=== PATIENT | male | born 1950 | race Caucasian/White ===

== ENCOUNTER 2017-04-14 11:42 | Inpatient (IN) | payer OTHER ==
[2017-04-14 15:21] LABS: ADD MAN DIFF? NO
[2017-04-14 15:23] LABS: BASOPHIL # 0.1 10^3/ul (0.0-0.1); BASOPHILS % 0.6 % (0.0-2.0); EOSINOPHILS # 0.1 10^3/ul (0.0-0.5); EOSINOPHILS % 0.7 % (0.0-7.0); HEMATOCRIT 25.7 % (42.0-52.0); HEMOGLOBIN 8.5 g/dl (14.0-18.0); MEAN CORPUSCULAR HEMOGLOBIN 28.8 pg (29.0-33.0); MEAN CORPUSCULAR HGB CONC 33.1 g/dl (32.0-37.0); MEAN CORPUSCULAR VOLUME 87.1 fl (82.0-101.0); MEAN PLATELET VOLUME 12.1 fl (7.4-10.4); MONOCYTE # 1.1 10^3/ul (0.3-0.9); MONOCYTES % 7.8 % (0.0-11.0); NEUTROPHIL # 8.1 10^3/ul (1.6-7.5); NEUTROPHILS % 60.6 % (39.0-77.0); PLATELET COUNT 236 10^3/UL (140-415); RED BLOOD COUNT 2.95 10^6/ul (4.70-6.10); RED CELL DISTRIBUTION WIDTH 14.9 % (11.5-14.5)
[2017-04-14 15:23] LABS: WHITE BLOOD COUNT 13.4 10^3/ul (4.8-10.8)
[2017-04-14 15:49] LABS: ALANINE AMINOTRANSFERASE 30 IU/L (13-69); ALBUMIN 3.8 g/dl (3.3-4.9); ALBUMIN/GLOBULIN RATIO 1.18; ALKALINE PHOSPHATASE 96 IU/L (42-121); ANION GAP 22 (8-16); ASPARTATE AMINO TRANSFERASE 22 IU/L (15-46); BILIRUBIN,INDIRECT 0.1 mg/dl (0-1.1); BILIRUBIN,TOTAL 0.1 mg/dl (0.2-1.3); BLOOD UREA NITROGEN 65 mg/dl (7-20); CALCIUM 8.3 mg/dl (8.4-10.2); CARBON DIOXIDE 19 mmol/L (21-31); CHLORIDE 114 mmol/L (97-110); CREATININE 7.76 mg/dl (0.61-1.24); GLUCOSE 61 mg/dl (70-220); POTASSIUM 4.4 mmol/L (3.5-5.1); SODIUM 151 mmol/L (135-144)
[2017-04-14 16:00] LABS: B-TYPE NATRIURETIC PEPTIDE 13800 PG/ML (0-125); TROPONIN-I 0.034 ng/ml (0.00-0.12)
[2017-04-14 17:42] LABS: ADD UMIC YES; UR ASCORBIC ACID NEGATIVE (NEGATIVE); UR BACTERIA FEW /HPF (NONE SEEN); UR BILIRUBIN (Dip) NEGATIVE (NEGATIVE); UR BLOOD (Dip) 2+ mg/dL (NEGATIVE); UR CLARITY CLOUDY (CLEAR); UR COLOR YELLOW (YELLOW); UR GLUCOSE (Dip) 1+ mg/dL (NEGATIVE); UR KETONES (Dip) NEGATIVE (NEGATIVE); UR LEUKOCYTE ESTERASE (Dip) NEGATIVE Leu/ul (NEGATIVE); UR NITRITE (Dip) NEGATIVE (NEGATIVE); UR RBC 4 /HPF (0-5); UR SPECIFIC GRAVITY (Dip) 1.014 (1.003-1.030); UR TOTAL PROTEIN (Dip) 3+ mg/dl (NEGATIVE); UR UROBILINOGEN (Dip) NEGATIVE (NEGATIVE); UR WBC 5 /HPF (0-5)
[2017-04-14] MEDS ORDERED: ACETAMINOPHEN 325 MG TAB PO (19:00)
[2017-04-14] MEDS ORDERED: ONDANSETRON 4 MG INJ IV (19:00)
[2017-04-15] MEDS: hydrALAzine 20 MG INJ IV ×2 (01:26→18:07)
[2017-04-15] MEDS ORDERED: ALBUTEROL/IPRATROPIUM (NEB) 3 ML AMP HHN (04:30)
[2017-04-15] MEDS ORDERED: ACETAMINOPHEN 325 MG TAB PO (04:30)
[2017-04-15] MEDS ORDERED: morphine 2 MG INJ IV (04:30)
[2017-04-15] MEDS ORDERED: hydrALAzine 20 MG INJ IV (04:30)
[2017-04-15] MEDS ORDERED: ONDANSETRON 4 MG INJ IV (04:30)
[2017-04-15] MEDS ORDERED: NACL 0.9% 3 ML SYG IV (04:30)
[2017-04-15] MEDS: SOD CHLORIDE 0.9% 1,000 ML IV ×3 (06:00→18:07)
[2017-04-15] MEDS: ALBUMIN HUMAN 25% 100 ML IV ×3 (08:55→20:18)
[2017-04-15] MEDS: AMLODIPINE 10 MG TAB PO (08:56)
[2017-04-15] MEDS: FERROUS SULFATE (EC) 325 MG TAB PO ×2 (08:57→20:16)
[2017-04-15 09:32] LABS: ADD MAN DIFF? NO
[2017-04-15 09:46] LABS: BASOPHIL # 0.1 10^3/ul (0.0-0.1); BASOPHILS % 0.7 % (0.0-2.0); EOSINOPHILS # 0.2 10^3/ul (0.0-0.5); HEMATOCRIT 24.7 % (42.0-52.0); HEMOGLOBIN 8.2 g/dl (14.0-18.0); LYMPHOCYTES # 3.2 10^3/ul (0.8-2.9); LYMPHOCYTES % 29.7 % (15.0-51.0); MEAN CORPUSCULAR HEMOGLOBIN 28.8 pg (29.0-33.0); MEAN CORPUSCULAR HGB CONC 33.2 g/dl (32.0-37.0); MEAN CORPUSCULAR VOLUME 86.7 fl (82.0-101.0); MEAN PLATELET VOLUME 12.4 fl (7.4-10.4); MONOCYTE # 0.9 10^3/ul (0.3-0.9); MONOCYTES % 8.1 % (0.0-11.0); NEUTROPHIL # 6.5 10^3/ul (1.6-7.5); NEUTROPHILS % 59.2 % (39.0-77.0); PLATELET COUNT 215 10^3/UL (140-415); RED BLOOD COUNT 2.85 10^6/ul (4.70-6.10); RED CELL DISTRIBUTION WIDTH 14.9 % (11.5-14.5)
[2017-04-15 09:46] LABS: WHITE BLOOD COUNT 10.9 10^3/ul (4.8-10.8)
[2017-04-15 10:01] LABS: IRON 12 ug/dl (35-150)
[2017-04-15 10:05] LABS: ALANINE AMINOTRANSFERASE 34 IU/L (13-69); ALBUMIN 3.1 g/dl (3.3-4.9); ALBUMIN/GLOBULIN RATIO 1.06; ALKALINE PHOSPHATASE 81 IU/L (42-121); ANION GAP 19 (8-16); ASPARTATE AMINO TRANSFERASE 19 IU/L (15-46); BLOOD UREA NITROGEN 67 mg/dl (7-20); CALCIUM 7.9 mg/dl (8.4-10.2); CARBON DIOXIDE 17 mmol/L (21-31); CHLORIDE 115 mmol/L (97-110); CHOL/HDL RATIO 3.3 RATIO; CHOLESTEROL 137 mg/dl (100-200); CREATININE 7.84 mg/dl (0.61-1.24); GLUCOSE 91 mg/dl (70-220); HDL CHOLESTEROL 41 mg/dl (30-78); LDL CHOLESTEROL,CALCULATED 75 mg/dl; MAGNESIUM 2.2 mg/dl (1.7-2.5); POTASSIUM 3.8 mmol/L (3.5-5.1); SODIUM 147 mmol/L (135-144); TRIGLYCERIDES 105 mg/dl (0-149)
[2017-04-15 10:12] LABS: % IRON SATURATION 4 % SAT (22-52); TOTAL IRON BINDING CAPACITY 289 ug/dl (241-421)
[2017-04-15] MEDS: HEPARIN 5,000 UNIT/0.5 ML VIAL SC ×2 (10:36→20:29)
[2017-04-15 16:15] LABS: SODIUM,URINE RANDOM 55 mmol/L (30-90)
[2017-04-15 16:15] LABS: POTASSIUM,URINE RANDOM 21.9 mmol/L (25-125)
[2017-04-15 16:17] LABS: CREATININE,URINE RANDOM 123.54 mg/dl (20-370)
[2017-04-15 16:17] LABS: SODIUM,URINE RANDOM 55 mmol/L (30-90)
[2017-04-15 16:30] LABS: PROTEIN URINE > 600.0 mg/dl (0.0-11.9)
[2017-04-15] MEDS ORDERED: DEXTROSE 50% 50 ML SYRINGE IV ×2 (18:00)
[2017-04-15] MEDS ORDERED: GLUCOSE GEL 15 GRAM TUBE BUCCAL (18:00)
[2017-04-15] MEDS ORDERED: GLUCAGON 1 MG INJ IM (18:00)
[2017-04-15] MEDS ORDERED: GLUCOSE GEL 15 GRAM TUBE PO ×2 (18:00)
[2017-04-15] MEDS: ATORVASTATIN 20 MG TAB PO (20:15)
[2017-04-15] MEDS: INSULIN GLARGINE [LANtus] 3 ML PEN SC (20:28)
[2017-04-15] MEDS: INSULIN ASPART [NOVOLOG] 3 ML PEN SC (20:29)
[2017-04-15] MEDS: ACCU-CHEK XX (20:29)
[2017-04-16 06:08] LABS: ADD MAN DIFF? NO
[2017-04-16 06:38] LABS: WHITE BLOOD COUNT 9.4 10^3/ul (4.8-10.8)
[2017-04-16 06:38] LABS: BASOPHIL # 0.1 10^3/ul (0.0-0.1); BASOPHILS % 0.6 % (0.0-2.0); EOSINOPHILS # 0.2 10^3/ul (0.0-0.5); EOSINOPHILS % 2.4 % (0.0-7.0); HEMATOCRIT 23.1 % (42.0-52.0); HEMOGLOBIN 7.5 g/dl (14.0-18.0); LYMPHOCYTES # 3.1 10^3/ul (0.8-2.9); LYMPHOCYTES % 33.2 % (15.0-51.0); MEAN CORPUSCULAR HEMOGLOBIN 28.7 pg (29.0-33.0); MEAN CORPUSCULAR HGB CONC 32.5 g/dl (32.0-37.0); MEAN CORPUSCULAR VOLUME 88.5 fl (82.0-101.0); MEAN PLATELET VOLUME 12.8 fl (7.4-10.4); MONOCYTE # 0.8 10^3/ul (0.3-0.9); MONOCYTES % 8.3 % (0.0-11.0); NEUTROPHIL # 5.2 10^3/ul (1.6-7.5); NEUTROPHILS % 55.2 % (39.0-77.0); PLATELET COUNT 193 10^3/UL (140-415); RED BLOOD COUNT 2.61 10^6/ul (4.70-6.10)
[2017-04-16 07:30] LABS: ALANINE AMINOTRANSFERASE 28 IU/L (13-69); ALBUMIN 3.7 g/dl (3.3-4.9); ALBUMIN/GLOBULIN RATIO 1.42; ALKALINE PHOSPHATASE 65 IU/L (42-121); ANION GAP 21 (8-16); ASPARTATE AMINO TRANSFERASE 20 IU/L (15-46); BLOOD UREA NITROGEN 66 mg/dl (7-20); C-REACTIVE PROTEIN 1.1 mg/dl (0.0-0.9); CALCIUM 8.1 mg/dl (8.4-10.2); CARBON DIOXIDE 18 mmol/L (21-31); CHLORIDE 114 mmol/L (97-110); CREATININE 7.52 mg/dl (0.61-1.24); SODIUM 149 mmol/L (135-144); TOTAL PROTEIN 6.3 g/dl (6.1-8.1)
[2017-04-16 07:42] LABS: GLUCOSE 42 mg/dl (70-220)
[2017-04-16] MEDS: ACCU-CHEK XX ×4 (07:48→21:00)
[2017-04-16] MEDS: FERROUS SULFATE (EC) 325 MG TAB PO ×2 (08:11→20:35)
[2017-04-16] MEDS: AMLODIPINE 10 MG TAB PO (08:11)
[2017-04-16] MEDS: HEPARIN 5,000 UNIT/0.5 ML VIAL SC ×2 (08:12→20:36)
[2017-04-16 08:16] LABS: PHOSPHORUS 5.7 mg/dl (2.5-4.9)
[2017-04-16 08:16] LABS: MAGNESIUM 2.1 mg/dl (1.7-2.5)
[2017-04-16] MEDS: INSULIN ASPART [NOVOLOG] 3 ML PEN SC ×4 (08:16→20:40)
[2017-04-16 11:00] LABS: HEMOGLOBIN A1C 5.6 % (0-5.9)
[2017-04-16 17:31] LABS: COMPLEMENT C3 88 mg/dl (88-165); COMPLEMENT C4 32 mg/dl (14-44)
[2017-04-16] MEDS: ATORVASTATIN 20 MG TAB PO (20:35)
[2017-04-16] MEDS: INSULIN GLARGINE [LANtus] 3 ML PEN SC (20:37)
[2017-04-17 03:01] LABS: OCCULT BLOOD STOOL NEGATIVE (NEGATIVE)
[2017-04-17 05:51] LABS: ADD MAN DIFF? NO
[2017-04-17 05:55] LABS: BASOPHIL # 0.1 10^3/ul (0.0-0.1); BASOPHILS % 0.5 % (0.0-2.0); EOSINOPHILS # 0.3 10^3/ul (0.0-0.5); EOSINOPHILS % 2.8 % (0.0-7.0); HEMATOCRIT 23.7 % (42.0-52.0); HEMOGLOBIN 7.7 g/dl (14.0-18.0); LYMPHOCYTES % 28.3 % (15.0-51.0); MEAN CORPUSCULAR HEMOGLOBIN 28.8 pg (29.0-33.0); MEAN CORPUSCULAR HGB CONC 32.5 g/dl (32.0-37.0); MEAN CORPUSCULAR VOLUME 88.8 fl (82.0-101.0); MONOCYTE # 0.9 10^3/ul (0.3-0.9); MONOCYTES % 8.2 % (0.0-11.0); NEUTROPHIL # 6.3 10^3/ul (1.6-7.5); PLATELET COUNT 200 10^3/UL (140-415); RED BLOOD COUNT 2.67 10^6/ul (4.70-6.10); RED CELL DISTRIBUTION WIDTH 14.8 % (11.5-14.5)
[2017-04-17 05:55] LABS: WHITE BLOOD COUNT 10.6 10^3/ul (4.8-10.8)
[2017-04-17 06:29] LABS: IRON 52 ug/dl (35-150)
[2017-04-17 06:37] LABS: PHOSPHORUS 5.9 mg/dl (2.5-4.9)
[2017-04-17 06:39] LABS: % IRON SATURATION 19 % SAT (22-52); TOTAL IRON BINDING CAPACITY 270 ug/dl (241-421)
[2017-04-17 06:58] LABS: ALANINE AMINOTRANSFERASE 36 IU/L (13-69); ALBUMIN 3.7 g/dl (3.3-4.9); ALBUMIN/GLOBULIN RATIO 1.37; ALKALINE PHOSPHATASE 68 IU/L (42-121); ANION GAP 19 (8-16); ASPARTATE AMINO TRANSFERASE 24 IU/L (15-46); BILIRUBIN,INDIRECT 0.1 mg/dl (0-1.1); BILIRUBIN,TOTAL 0.1 mg/dl (0.2-1.3); BLOOD UREA NITROGEN 73 mg/dl (7-20); CALCIUM 8.1 mg/dl (8.4-10.2); CARBON DIOXIDE 17 mmol/L (21-31); CHLORIDE 111 mmol/L (97-110); CREATININE 7.65 mg/dl (0.61-1.24); GLUCOSE 60 mg/dl (70-220); POTASSIUM 4.7 mmol/L (3.5-5.1); SODIUM 142 mmol/L (135-144); TOTAL PROTEIN 6.4 g/dl (6.1-8.1)
[2017-04-17 07:08] LABS: FERRITIN 48.6 ng/ml (11.1-264.0)
[2017-04-17] MEDS: INSULIN ASPART [NOVOLOG] 3 ML PEN SC ×5 (08:00→20:46)
[2017-04-17] MEDS: ACCU-CHEK XX ×4 (08:07→20:48)
[2017-04-17 08:09] LABS: ERYTHROCYTE SEDIMENTATION RATE 40 mm/Hr (0-20)
[2017-04-17] MEDS: FERROUS SULFATE (EC) 325 MG TAB PO ×2 (08:57→20:42)
[2017-04-17] MEDS: AMLODIPINE 10 MG TAB PO (08:58)
[2017-04-17] MEDS: FUROSEMIDE 40 MG INJ IV ×2 (08:58→17:21)
[2017-04-17] MEDS: HEPARIN 5,000 UNIT/0.5 ML VIAL SC ×2 (09:06→20:48)
[2017-04-17 11:11] LABS: PROTEIN, TOTAL 5.7 g/dL (6.1-8.1)
[2017-04-17] MEDS: SEVELAMER 400 MG TAB PO ×2 (11:31→17:17)
[2017-04-17] MEDS: SOD FERRIC GLUC COMPLX 125 MG in SOD CHLORIDE 0.9% 100 ML IVPB (11:31)
[2017-04-17] MEDS: EPOETIN 10000 UNITS/1 ML INJ (ESRD) SC (17:17)
[2017-04-17] MEDS: ATORVASTATIN 20 MG TAB PO (20:42)
[2017-04-17] MEDS: INSULIN GLARGINE [LANtus] 3 ML PEN SC (20:45)
[2017-04-18] MEDS: FUROSEMIDE 40 MG INJ IV ×2 (05:35→17:30)
[2017-04-18 05:54] LABS: ADD MAN DIFF? NO
[2017-04-18 05:59] LABS: BASOPHILS % 0.4 % (0.0-2.0); EOSINOPHILS # 0.2 10^3/ul (0.0-0.5); EOSINOPHILS % 1.9 % (0.0-7.0); HEMATOCRIT 23.3 % (42.0-52.0); HEMOGLOBIN 7.5 g/dl (14.0-18.0); LYMPHOCYTES # 2.8 10^3/ul (0.8-2.9); LYMPHOCYTES % 30.4 % (15.0-51.0); MEAN CORPUSCULAR HEMOGLOBIN 28.5 pg (29.0-33.0); MEAN CORPUSCULAR HGB CONC 32.2 g/dl (32.0-37.0); MEAN CORPUSCULAR VOLUME 88.6 fl (82.0-101.0); MEAN PLATELET VOLUME 12.1 fl (7.4-10.4); MONOCYTE # 0.8 10^3/ul (0.3-0.9); MONOCYTES % 8.5 % (0.0-11.0); NEUTROPHIL # 5.4 10^3/ul (1.6-7.5); NEUTROPHILS % 58.5 % (39.0-77.0); PLATELET COUNT 192 10^3/UL (140-415); RED BLOOD COUNT 2.63 10^6/ul (4.70-6.10); RED CELL DISTRIBUTION WIDTH 14.6 % (11.5-14.5)
[2017-04-18 05:59] LABS: WHITE BLOOD COUNT 9.3 10^3/ul (4.8-10.8)
[2017-04-18 06:41] LABS: ANION GAP 17 (8-16); BLOOD UREA NITROGEN 80 mg/dl (7-20); CALCIUM 8.4 mg/dl (8.4-10.2); CARBON DIOXIDE 19 mmol/L (21-31); CHLORIDE 109 mmol/L (97-110); GLUCOSE 58 mg/dl (70-220); POTASSIUM 4.5 mmol/L (3.5-5.1); SODIUM 140 mmol/L (135-144)
[2017-04-18] MEDS: ACCU-CHEK XX ×4 (07:30→21:00)
[2017-04-18] MEDS: INSULIN ASPART [NOVOLOG] 3 ML PEN SC ×7 (07:35→21:00)
[2017-04-18] MEDS: FERROUS SULFATE (EC) 325 MG TAB PO ×2 (09:45→21:33)
[2017-04-18] MEDS: SEVELAMER 400 MG TAB PO ×3 (09:45→17:24)
[2017-04-18] MEDS: AMLODIPINE 10 MG TAB PO (09:46)
[2017-04-18] MEDS: HEPARIN 5,000 UNIT/0.5 ML VIAL SC ×2 (09:47→21:34)
[2017-04-18] MEDS: SOD FERRIC GLUC COMPLX 125 MG in SOD CHLORIDE 0.9% 100 ML IVPB (09:48)
[2017-04-18 11:24] LABS: PROTIME 15.4 Sec (11.9-14.9); PT RATIO 1.2
[2017-04-18 12:21] LABS: PARTIAL THROMBOPLASTIN TIME 39.4 Sec (25.0-35.0)
[2017-04-18 16:26] LABS: CREATININE, RANDOM URINE 143 mg/dL (20-370); PROTEIN/CREATININE RATIO 5552 mg/g creat (22-128); PTH CALCIUM 8.1 mg/dL (8.6-10.3); PTH CALCIUM 8.2 mg/dL (8.6-10.3)
[2017-04-18 17:12] LABS: ALBUMIN 3.4 g/dL (3.8-4.8); ALPHA-1-GLOBULINS 0.3 g/dL (0.2-0.3); ALPHA-2-GLOBULINS 0.7 g/dL (0.5-0.9); BETA 2 GLOBULINS 0.3 g/dL (0.2-0.5); BETA GLOBULINS 0.4 g/dL (0.4-0.6); GAMMA GLOBULINS 0.7 g/dL (0.8-1.7)
[2017-04-18] MEDS: INSULIN GLARGINE [LANtus] 3 ML PEN SC (20:00)
[2017-04-18] MEDS: ATORVASTATIN 20 MG TAB PO (21:33)
[2017-04-18] MEDS: DEXTROSE 5%-0.45% NACL 1,000 ML IV (21:57)
[2017-04-19] MEDS: INSULIN ASPART [NOVOLOG] 3 ML PEN SC ×9 (01:02→22:47)
[2017-04-19 05:57] LABS: ADD MAN DIFF? NO
[2017-04-19] MEDS: FUROSEMIDE 40 MG INJ IV ×2 (05:58→20:31)
[2017-04-19 06:11] LABS: WHITE BLOOD COUNT 11.4 10^3/ul (4.8-10.8)
[2017-04-19 06:11] LABS: BASOPHIL # 0.1 10^3/ul (0.0-0.1); BASOPHILS % 0.7 % (0.0-2.0); EOSINOPHILS # 0.3 10^3/ul (0.0-0.5); EOSINOPHILS % 2.2 % (0.0-7.0); HEMATOCRIT 23.1 % (42.0-52.0); HEMOGLOBIN 7.6 g/dl (14.0-18.0); LYMPHOCYTES # 3.2 10^3/ul (0.8-2.9); LYMPHOCYTES % 28.1 % (15.0-51.0); MEAN CORPUSCULAR HEMOGLOBIN 28.9 pg (29.0-33.0); MEAN CORPUSCULAR HGB CONC 32.9 g/dl (32.0-37.0); MEAN CORPUSCULAR VOLUME 87.8 fl (82.0-101.0); MEAN PLATELET VOLUME 12.9 fl (7.4-10.4); MONOCYTE # 1.3 10^3/ul (0.3-0.9); MONOCYTES % 11.5 % (0.0-11.0); NEUTROPHIL # 6.5 10^3/ul (1.6-7.5); NEUTROPHILS % 56.8 % (39.0-77.0); PLATELET COUNT 181 10^3/UL (140-415); RED BLOOD COUNT 2.63 10^6/ul (4.70-6.10); RED CELL DISTRIBUTION WIDTH 14.6 % (11.5-14.5)
[2017-04-19 06:43] LABS: ANION GAP 16 (8-16); BLOOD UREA NITROGEN 80 mg/dl (7-20); CALCIUM 8.2 mg/dl (8.4-10.2); CARBON DIOXIDE 16 mmol/L (21-31); CHLORIDE 109 mmol/L (97-110); CREATININE 7.75 mg/dl (0.61-1.24); GLUCOSE 118 mg/dl (70-220); MAGNESIUM 1.9 mg/dl (1.7-2.5); POTASSIUM 4.2 mmol/L (3.5-5.1); SODIUM 137 mmol/L (135-144)
[2017-04-19] MEDS ORDERED: CEFAZOLIN 1 GM INJ (07:00)
[2017-04-19] MEDS: ACCU-CHEK XX ×4 (07:30→21:00)
[2017-04-19 08:20] LABS: PTH INTACT 171 pg/mL (14-64); PTH INTACT 173 pg/mL (14-64)
[2017-04-19] MEDS: FERROUS SULFATE (EC) 325 MG TAB PO ×2 (09:00→21:53)
[2017-04-19] MEDS: HEPARIN 5,000 UNIT/0.5 ML VIAL SC ×2 (09:00→21:56)
[2017-04-19] MEDS: AMLODIPINE 10 MG TAB PO (09:00)
[2017-04-19] MEDS ORDERED: LIDOCAINE 1% (MDV) 20 ML INJ (09:23)
[2017-04-19] MEDS ORDERED: FENTAnyl 50 MCG/ML VIAL ×2 (09:23→10:51)
[2017-04-19] MEDS ORDERED: HEPARIN 1000 UNITS/ML 10 ML INJ (09:23)
[2017-04-19] MEDS ORDERED: MIDAZOLAM 1 MG/ML 2 ML INJ ×2 (09:23→10:51)
[2017-04-19] MEDS ORDERED: SOD CHLORIDE 0.9% 500 ML (09:24)
[2017-04-19] MEDS ORDERED: PROPOFOL 20 ML (10:50)
[2017-04-19] MEDS ORDERED: SEVELAMER 400 MG TAB PO (11:30)
[2017-04-19] MEDS: SOD FERRIC GLUC COMPLX 125 MG in SOD CHLORIDE 0.9% 100 ML IVPB (14:28)
[2017-04-19] MEDS: SEVELAMER 800 MG TAB PO ×2 (14:31→20:24)
[2017-04-19] MEDS: ATORVASTATIN 20 MG TAB PO (21:53)
[2017-04-19] MEDS: EPOETIN 10000 UNITS/1 ML INJ (ESRD) SC (22:39)
[2017-04-19] MEDS: INSULIN GLARGINE [LANtus] 3 ML PEN SC (22:47)
[2017-04-20] MEDS: FUROSEMIDE 40 MG INJ IV ×2 (05:34→17:58)
[2017-04-20 06:42] LABS: ADD MAN DIFF? NO
[2017-04-20 06:56] LABS: BASOPHIL # 0.1 10^3/ul (0.0-0.1); BASOPHILS % 0.5 % (0.0-2.0); EOSINOPHILS # 0.2 10^3/ul (0.0-0.5); EOSINOPHILS % 1.4 % (0.0-7.0); HEMATOCRIT 23.3 % (42.0-52.0); HEMOGLOBIN 7.6 g/dl (14.0-18.0); LYMPHOCYTES % 28.4 % (15.0-51.0); MEAN CORPUSCULAR HEMOGLOBIN 28.8 pg (29.0-33.0); MEAN CORPUSCULAR HGB CONC 32.6 g/dl (32.0-37.0); MEAN CORPUSCULAR VOLUME 88.3 fl (82.0-101.0); MEAN PLATELET VOLUME 12.6 fl (7.4-10.4); MONOCYTE # 1.2 10^3/ul (0.3-0.9); MONOCYTES % 11.5 % (0.0-11.0); NEUTROPHIL # 6.2 10^3/ul (1.6-7.5); NEUTROPHILS % 57.8 % (39.0-77.0); PLATELET COUNT 184 10^3/UL (140-415); RED BLOOD COUNT 2.64 10^6/ul (4.70-6.10); RED CELL DISTRIBUTION WIDTH 14.6 % (11.5-14.5)
[2017-04-20 06:56] LABS: WHITE BLOOD COUNT 10.7 10^3/ul (4.8-10.8)
[2017-04-20 07:14] LABS: ANION GAP 16 (8-16); BLOOD UREA NITROGEN 62 mg/dl (7-20); CALCIUM 8.2 mg/dl (8.4-10.2); CARBON DIOXIDE 23 mmol/L (21-31); CHLORIDE 106 mmol/L (97-110); CREATININE 6.15 mg/dl (0.61-1.24); GLUCOSE 85 mg/dl (70-220); POTASSIUM 4.5 mmol/L (3.5-5.1); SODIUM 140 mmol/L (135-144)
[2017-04-20 07:35] LABS: PHOSPHORUS 4.6 mg/dl (2.5-4.9)
[2017-04-20 07:35] LABS: MAGNESIUM 1.8 mg/dl (1.7-2.5)
[2017-04-20] MEDS: INSULIN ASPART [NOVOLOG] 3 ML PEN SC ×7 (08:00→20:40)
[2017-04-20] MEDS: ACCU-CHEK XX ×4 (08:29→21:00)
[2017-04-20] MEDS: SEVELAMER 800 MG TAB PO ×3 (08:32→17:58)
[2017-04-20] MEDS: HEPARIN 5,000 UNIT/0.5 ML VIAL SC ×2 (08:32→20:37)
[2017-04-20] MEDS: FERROUS SULFATE (EC) 325 MG TAB PO ×2 (08:32→20:37)
[2017-04-20] MEDS: AMLODIPINE 10 MG TAB PO ×2 (08:33→16:37)
[2017-04-20] MEDS: SOD FERRIC GLUC COMPLX 125 MG in SOD CHLORIDE 0.9% 100 ML IVPB (09:59)
[2017-04-20 11:47] LABS: HAAIG REFLEX REFLEX FILED
[2017-04-20 13:20] LABS: HEPATITIS B SURFACE ANTIGEN NEGATIVE (NEGATIVE)
[2017-04-20 13:38] LABS: HEPATITIS B CORE ANTIBODY NEGATIVE (NEGATIVE); HEPATITIS C VIRAL ANTIBODY NEGATIVE (NEGATIVE)
[2017-04-20] MEDS: ATORVASTATIN 20 MG TAB PO (20:37)
[2017-04-20] MEDS: INSULIN GLARGINE [LANtus] 3 ML PEN SC (20:38)
[2017-04-21 05:53] LABS: ADD MAN DIFF? NO
[2017-04-21 05:56] LABS: BASOPHIL # 0.1 10^3/ul (0.0-0.1); BASOPHILS % 0.5 % (0.0-2.0); EOSINOPHILS # 0.3 10^3/ul (0.0-0.5); EOSINOPHILS % 2.2 % (0.0-7.0); LYMPHOCYTES # 2.9 10^3/ul (0.8-2.9); LYMPHOCYTES % 23.8 % (15.0-51.0); MEAN CORPUSCULAR HEMOGLOBIN 28.4 pg (29.0-33.0); MEAN CORPUSCULAR VOLUME 88.7 fl (82.0-101.0); MEAN PLATELET VOLUME 12.6 fl (7.4-10.4); MONOCYTE # 1.4 10^3/ul (0.3-0.9); MONOCYTES % 11.5 % (0.0-11.0); NEUTROPHIL # 7.4 10^3/ul (1.6-7.5); NEUTROPHILS % 61.6 % (39.0-77.0); NUCLEATED RED BLOOD CELLS% 0.2 /100WBC (0.0-0.0); PLATELET COUNT 214 10^3/UL (140-415); RED BLOOD COUNT 2.82 10^6/ul (4.70-6.10); RED CELL DISTRIBUTION WIDTH 14.6 % (11.5-14.5)
[2017-04-21] MEDS: FUROSEMIDE 40 MG INJ IV ×2 (06:05→17:11)
[2017-04-21 06:22] LABS: ANION GAP 12 (8-16); BLOOD UREA NITROGEN 39 mg/dl (7-20); CALCIUM 8.6 mg/dl (8.4-10.2); CARBON DIOXIDE 29 mmol/L (21-31); CHLORIDE 104 mmol/L (97-110); GLUCOSE 55 mg/dl (70-220); MAGNESIUM 1.9 mg/dl (1.7-2.5); PHOSPHORUS 3.4 mg/dl (2.5-4.9); POTASSIUM 3.8 mmol/L (3.5-5.1); SODIUM 141 mmol/L (135-144)
[2017-04-21] MEDS: ACCU-CHEK XX ×4 (07:30→21:00)
[2017-04-21] MEDS: INSULIN ASPART [NOVOLOG] 3 ML PEN SC ×7 (08:00→20:39)
[2017-04-21] MEDS: FERROUS SULFATE (EC) 325 MG TAB PO ×2 (08:21→20:36)
[2017-04-21] MEDS: SEVELAMER 800 MG TAB PO ×3 (08:21→17:10)
[2017-04-21] MEDS: HEPARIN 5,000 UNIT/0.5 ML VIAL SC ×2 (08:22→20:38)
[2017-04-21] MEDS: SOD FERRIC GLUC COMPLX 125 MG in SOD CHLORIDE 0.9% 100 ML IVPB (12:13)
[2017-04-21] MEDS: AMLODIPINE 10 MG TAB PO (12:15)
[2017-04-21] MEDS: EPOETIN 10000 UNITS/1 ML INJ (ESRD) SC (17:12)
[2017-04-21] MEDS: ATORVASTATIN 20 MG TAB PO (20:35)
[2017-04-21] MEDS: INSULIN GLARGINE [LANtus] 3 ML PEN SC (20:40)
[2017-04-22 05:07] LABS: ADD MAN DIFF? NO
[2017-04-22 05:10] LABS: WHITE BLOOD COUNT 12.5 10^3/ul (4.8-10.8)
[2017-04-22 05:10] LABS: BASOPHIL # 0.1 10^3/ul (0.0-0.1); BASOPHILS % 0.4 % (0.0-2.0); EOSINOPHILS # 0.3 10^3/ul (0.0-0.5); EOSINOPHILS % 2.1 % (0.0-7.0); HEMOGLOBIN 7.6 g/dl (14.0-18.0); LYMPHOCYTES # 3.1 10^3/ul (0.8-2.9); LYMPHOCYTES % 24.9 % (15.0-51.0); MEAN CORPUSCULAR HEMOGLOBIN 28.4 pg (29.0-33.0); MEAN CORPUSCULAR HGB CONC 31.7 g/dl (32.0-37.0); MEAN CORPUSCULAR VOLUME 89.6 fl (82.0-101.0); MEAN PLATELET VOLUME 11.9 fl (7.4-10.4); MONOCYTE # 1.4 10^3/ul (0.3-0.9); MONOCYTES % 10.9 % (0.0-11.0); NEUTROPHIL # 7.7 10^3/ul (1.6-7.5); NEUTROPHILS % 61.3 % (39.0-77.0); PLATELET COUNT 221 10^3/UL (140-415); RED BLOOD COUNT 2.68 10^6/ul (4.70-6.10); RED CELL DISTRIBUTION WIDTH 15.2 % (11.5-14.5)
[2017-04-22 05:25] LABS: PHOSPHORUS 3.3 mg/dl (2.5-4.9)
[2017-04-22 05:25] LABS: MAGNESIUM 1.9 mg/dl (1.7-2.5)
[2017-04-22 05:46] LABS: ANION GAP 12 (8-16); BLOOD UREA NITROGEN 42 mg/dl (7-20); CARBON DIOXIDE 26 mmol/L (21-31); CHLORIDE 106 mmol/L (97-110); CREATININE 5.57 mg/dl (0.61-1.24); GLUCOSE 59 mg/dl (70-220); POTASSIUM 4.4 mmol/L (3.5-5.1); SODIUM 140 mmol/L (135-144)
[2017-04-22] MEDS: FUROSEMIDE 40 MG INJ IV ×2 (06:25→17:37)
[2017-04-22] MEDS: INSULIN ASPART [NOVOLOG] 3 ML PEN SC ×7 (08:00→21:00)
[2017-04-22] MEDS: ACCU-CHEK XX ×4 (08:16→21:00)
[2017-04-22] MEDS: HEPARIN 5,000 UNIT/0.5 ML VIAL SC ×2 (08:34→20:53)
[2017-04-22] MEDS: AMLODIPINE 10 MG TAB PO (08:36)
[2017-04-22] MEDS: SEVELAMER 800 MG TAB PO ×3 (08:36→17:32)
[2017-04-22] MEDS: FERROUS SULFATE (EC) 325 MG TAB PO ×2 (08:36→20:50)
[2017-04-22] MEDS: EPOETIN 10000 UNITS/1 ML INJ (ESRD) SC (12:02)
[2017-04-22] MEDS ORDERED: INSULIN GLARGINE [LANtus] 3 ML PEN SC (20:00)
[2017-04-22] MEDS: ATORVASTATIN 20 MG TAB PO (20:50)
[2017-04-22] MEDS: hydrALAzine 20 MG INJ IV (20:52)
[2017-04-23 05:22] LABS: ADD MAN DIFF? NO
[2017-04-23 05:29] LABS: WHITE BLOOD COUNT 12.5 10^3/ul (4.8-10.8)
[2017-04-23 05:29] LABS: BASOPHIL # 0.1 10^3/ul (0.0-0.1); BASOPHILS % 0.6 % (0.0-2.0); EOSINOPHILS # 0.3 10^3/ul (0.0-0.5); EOSINOPHILS % 2.6 % (0.0-7.0); HEMATOCRIT 22.3 % (42.0-52.0); HEMOGLOBIN 7.2 g/dl (14.0-18.0); LYMPHOCYTES # 3.4 10^3/ul (0.8-2.9); LYMPHOCYTES % 26.9 % (15.0-51.0); MEAN CORPUSCULAR HEMOGLOBIN 28.9 pg (29.0-33.0); MEAN CORPUSCULAR HGB CONC 32.3 g/dl (32.0-37.0); MEAN CORPUSCULAR VOLUME 89.6 fl (82.0-101.0); MEAN PLATELET VOLUME 12.1 fl (7.4-10.4); MONOCYTE # 1.3 10^3/ul (0.3-0.9); MONOCYTES % 10.5 % (0.0-11.0); NEUTROPHIL # 7.4 10^3/ul (1.6-7.5); NUCLEATED RED BLOOD CELLS% 0.2 /100WBC (0.0-0.0); PLATELET COUNT 204 10^3/UL (140-415); RED BLOOD COUNT 2.49 10^6/ul (4.70-6.10); RED CELL DISTRIBUTION WIDTH 15.7 % (11.5-14.5)
[2017-04-23] MEDS: FUROSEMIDE 40 MG INJ IV ×2 (05:50→17:09)
[2017-04-23 06:29] LABS: ANION GAP 13 (8-16); BLOOD UREA NITROGEN 48 mg/dl (7-20); CALCIUM 7.7 mg/dl (8.4-10.2); CARBON DIOXIDE 24 mmol/L (21-31); CHLORIDE 104 mmol/L (97-110); CREATININE 5.93 mg/dl (0.61-1.24); GLUCOSE 131 mg/dl (70-220); MAGNESIUM 1.9 mg/dl (1.7-2.5); PHOSPHORUS 3.5 mg/dl (2.5-4.9); POTASSIUM 4.3 mmol/L (3.5-5.1); SODIUM 137 mmol/L (135-144)
[2017-04-23] MEDS: hydrALAzine 20 MG INJ IV (06:58)
[2017-04-23] MEDS: ACCU-CHEK XX ×4 (07:30→20:57)
[2017-04-23] MEDS: INSULIN ASPART [NOVOLOG] 3 ML PEN SC ×9 (08:00→20:56)
[2017-04-23] MEDS: FERROUS SULFATE (EC) 325 MG TAB PO ×2 (08:10→20:56)
[2017-04-23] MEDS: SEVELAMER 800 MG TAB PO ×4 (08:10→17:08)
[2017-04-23] MEDS: HEPARIN 5,000 UNIT/0.5 ML VIAL SC (08:13)
[2017-04-23] MEDS: AMLODIPINE 10 MG TAB PO (08:15)
[2017-04-23] MEDS: ATORVASTATIN 20 MG TAB PO (20:56)
[2017-04-24] MEDS: hydrALAzine 20 MG INJ IV (02:27)
[2017-04-24 05:30] LABS: ADD MAN DIFF? NO
[2017-04-24 05:32] LABS: BASOPHIL # 0.1 10^3/ul (0.0-0.1); BASOPHILS % 0.4 % (0.0-2.0); EOSINOPHILS # 0.3 10^3/ul (0.0-0.5); EOSINOPHILS % 2.4 % (0.0-7.0); HEMATOCRIT 23.4 % (42.0-52.0); HEMOGLOBIN 7.7 g/dl (14.0-18.0); LYMPHOCYTES # 2.8 10^3/ul (0.8-2.9); LYMPHOCYTES % 23.3 % (15.0-51.0); MEAN CORPUSCULAR HEMOGLOBIN 29.6 pg (29.0-33.0); MEAN CORPUSCULAR HGB CONC 32.9 g/dl (32.0-37.0); MEAN PLATELET VOLUME 11.7 fl (7.4-10.4); MONOCYTE # 1.2 10^3/ul (0.3-0.9); MONOCYTES % 9.7 % (0.0-11.0); NEUTROPHIL # 7.5 10^3/ul (1.6-7.5); NEUTROPHILS % 63.7 % (39.0-77.0); NUCLEATED RED BLOOD CELLS% 0.2 /100WBC (0.0-0.0); PLATELET COUNT 211 10^3/UL (140-415); RED CELL DISTRIBUTION WIDTH 16.2 % (11.5-14.5)
[2017-04-24 05:32] LABS: WHITE BLOOD COUNT 11.9 10^3/ul (4.8-10.8)
[2017-04-24 06:01] LABS: PHOSPHORUS 3.6 mg/dl (2.5-4.9)
[2017-04-24 06:01] LABS: MAGNESIUM 1.7 mg/dl (1.7-2.5)
[2017-04-24 06:02] LABS: ANION GAP 10 (8-16); BLOOD UREA NITROGEN 32 mg/dl (7-20); CALCIUM 8.2 mg/dl (8.4-10.2); CARBON DIOXIDE 28 mmol/L (21-31); CHLORIDE 99 mmol/L (97-110); CREATININE 4.61 mg/dl (0.61-1.24); GLUCOSE 96 mg/dl (70-220); POTASSIUM 4.2 mmol/L (3.5-5.1); SODIUM 133 mmol/L (135-144)
[2017-04-24] MEDS: FUROSEMIDE 40 MG INJ IV ×2 (06:32→17:06)
[2017-04-24] MEDS: ACCU-CHEK XX ×4 (07:30→21:00)
[2017-04-24] MEDS: INSULIN ASPART [NOVOLOG] 3 ML PEN SC ×7 (08:00→20:09)
[2017-04-24] MEDS: FERROUS SULFATE (EC) 325 MG TAB PO ×2 (08:10→20:08)
[2017-04-24] MEDS: AMLODIPINE 10 MG TAB PO (08:11)
[2017-04-24] MEDS: SEVELAMER 800 MG TAB PO ×3 (08:11→17:04)
[2017-04-24] MEDS: EPOETIN 10000 UNITS/1 ML INJ (ESRD) SC (17:05)
[2017-04-24] MEDS: ATORVASTATIN 20 MG TAB PO (20:08)
[2017-04-25] MEDS: FUROSEMIDE 40 MG INJ IV ×2 (05:52→18:00)
[2017-04-25] MEDS: ACCU-CHEK XX ×4 (07:30→21:00)
[2017-04-25] MEDS: INSULIN ASPART [NOVOLOG] 3 ML PEN SC ×7 (08:00→21:00)
[2017-04-25] MEDS: AMLODIPINE 10 MG TAB PO (09:00)
[2017-04-25] MEDS: FERROUS SULFATE (EC) 325 MG TAB PO ×2 (09:52→21:16)
[2017-04-25] MEDS: SEVELAMER 800 MG TAB PO ×3 (09:53→17:21)
[2017-04-25] MEDS: ATORVASTATIN 20 MG TAB PO (21:15)
[2017-04-26] MEDS: FUROSEMIDE 40 MG INJ IV ×2 (06:09→18:08)
[2017-04-26] MEDS: INSULIN ASPART [NOVOLOG] 3 ML PEN SC ×7 (08:00→20:54)
[2017-04-26] MEDS: ACCU-CHEK XX ×4 (08:21→21:00)
[2017-04-26] MEDS: SEVELAMER 800 MG TAB PO ×3 (08:37→18:07)
[2017-04-26] MEDS: AMLODIPINE 10 MG TAB PO (08:37)
[2017-04-26] MEDS: FERROUS SULFATE (EC) 325 MG TAB PO ×2 (08:37→20:53)
[2017-04-26 11:14] LABS: ADD MAN DIFF? NO
[2017-04-26 11:17] LABS: WHITE BLOOD COUNT 10.4 10^3/ul (4.8-10.8)
[2017-04-26 11:17] LABS: BASOPHILS % 0.4 % (0.0-2.0); EOSINOPHILS # 0.2 10^3/ul (0.0-0.5); EOSINOPHILS % 1.7 % (0.0-7.0); HEMATOCRIT 28.7 % (42.0-52.0); HEMOGLOBIN 9.2 g/dl (14.0-18.0); LYMPHOCYTES # 2.1 10^3/ul (0.8-2.9); LYMPHOCYTES % 20.1 % (15.0-51.0); MEAN CORPUSCULAR HEMOGLOBIN 29.2 pg (29.0-33.0); MEAN CORPUSCULAR HGB CONC 32.1 g/dl (32.0-37.0); MEAN CORPUSCULAR VOLUME 91.1 fl (82.0-101.0); MONOCYTE # 0.8 10^3/ul (0.3-0.9); MONOCYTES % 7.5 % (0.0-11.0); NEUTROPHIL # 7.3 10^3/ul (1.6-7.5); PLATELET COUNT 255 10^3/UL (140-415); RED BLOOD COUNT 3.15 10^6/ul (4.70-6.10); RED CELL DISTRIBUTION WIDTH 16.7 % (11.5-14.5)
[2017-04-26 11:43] LABS: ANION GAP 15 (8-16); BLOOD UREA NITROGEN 25 mg/dl (7-20); CALCIUM 8.7 mg/dl (8.4-10.2); CARBON DIOXIDE 27 mmol/L (21-31); CHLORIDE 100 mmol/L (97-110); CREATININE 4.05 mg/dl (0.61-1.24); GLUCOSE 117 mg/dl (70-220); POTASSIUM 3.9 mmol/L (3.5-5.1); SODIUM 138 mmol/L (135-144)
[2017-04-26] MEDS: EPOETIN 10000 UNITS/1 ML INJ (ESRD) SC (18:10)
[2017-04-26] MEDS: ATORVASTATIN 20 MG TAB PO (20:53)
[2017-04-27] MEDS: FUROSEMIDE 40 MG INJ IV ×2 (06:08→17:39)
[2017-04-27] MEDS: AMLODIPINE 10 MG TAB PO (07:15)
[2017-04-27 07:40] LABS: ANION GAP 14 (8-16); BLOOD UREA NITROGEN 30 mg/dl (7-20); CALCIUM 7.8 mg/dl (8.4-10.2); CARBON DIOXIDE 27 mmol/L (21-31); CHLORIDE 101 mmol/L (97-110); GLUCOSE 92 mg/dl (70-220); POTASSIUM 4.1 mmol/L (3.5-5.1); SODIUM 138 mmol/L (135-144)
[2017-04-27] MEDS: INSULIN ASPART [NOVOLOG] 3 ML PEN SC ×7 (08:00→20:44)
[2017-04-27] MEDS: SEVELAMER 800 MG TAB PO ×3 (08:07→17:59)
[2017-04-27] MEDS: FERROUS SULFATE (EC) 325 MG TAB PO ×2 (08:08→20:45)
[2017-04-27] MEDS: ACCU-CHEK XX ×4 (08:10→20:45)
[2017-04-27] MEDS ORDERED: HEPARIN 5,000 UNIT/0.5 ML VIAL SC (14:00)
[2017-04-27] MEDS ORDERED: HEPARIN 1000 UNITS/ML 10 ML INJ CATHETER (14:00)
[2017-04-27] MEDS: HEPARIN 1000 UNITS/ML 10 ML INJ CATHETER (14:55)
[2017-04-27] MEDS: ATORVASTATIN 20 MG TAB PO (20:45)
[2017-04-28] MEDS: FUROSEMIDE 40 MG INJ IV ×2 (05:48→17:32)
[2017-04-28 06:52] LABS: ANION GAP 16 (8-16); BLOOD UREA NITROGEN 19 mg/dl (7-20); CALCIUM 7.9 mg/dl (8.4-10.2); CARBON DIOXIDE 29 mmol/L (21-31); CHLORIDE 102 mmol/L (97-110); CREATININE 3.64 mg/dl (0.61-1.24); GLUCOSE 99 mg/dl (70-220); POTASSIUM 4.6 mmol/L (3.5-5.1); SODIUM 142 mmol/L (135-144)
[2017-04-28] MEDS: SEVELAMER 800 MG TAB PO ×3 (07:54→17:31)
[2017-04-28] MEDS: ACCU-CHEK XX ×4 (07:55→21:00)
[2017-04-28] MEDS: INSULIN ASPART [NOVOLOG] 3 ML PEN SC ×7 (07:55→21:00)
[2017-04-28] MEDS: FERROUS SULFATE (EC) 325 MG TAB PO ×2 (09:25→22:10)
[2017-04-28] MEDS: AMLODIPINE 10 MG TAB PO (09:26)
[2017-04-28] MEDS: EPOETIN 10000 UNITS/1 ML INJ (ESRD) SC (17:34)
[2017-04-28] MEDS: ATORVASTATIN 20 MG TAB PO (22:10)
[2017-04-29] MEDS: FUROSEMIDE 40 MG INJ IV (05:43)
[2017-04-29 06:27] LABS: ANION GAP 15 (8-16); BLOOD UREA NITROGEN 28 mg/dl (7-20); CALCIUM 8.2 mg/dl (8.4-10.2); CARBON DIOXIDE 28 mmol/L (21-31); CHLORIDE 102 mmol/L (97-110); CREATININE 4.74 mg/dl (0.61-1.24); GLUCOSE 105 mg/dl (70-220); POTASSIUM 4.3 mmol/L (3.5-5.1); SODIUM 141 mmol/L (135-144)
[2017-04-29] MEDS: ACCU-CHEK XX ×4 (07:56→19:48)
[2017-04-29] MEDS: SEVELAMER 800 MG TAB PO ×3 (07:56→16:35)
[2017-04-29] MEDS: INSULIN ASPART [NOVOLOG] 3 ML PEN SC ×7 (07:57→20:38)
[2017-04-29] MEDS: FERROUS SULFATE (EC) 325 MG TAB PO (08:43)
[2017-04-29] MEDS: AMLODIPINE 10 MG TAB PO (08:44)
[2017-04-29] MEDS ORDERED: DOCUSATE SODIUM 250 MG CAP PO (15:30)
[2017-04-29] MEDS: THIAMINE 100 MG TAB PO (16:34)
[2017-04-29] MEDS: ASPIRIN (EC) 81 MG TAB PO (16:34)
[2017-04-29] MEDS: FUROSEMIDE 40 MG TAB PO (17:42)
[2017-04-30] MEDS: HEPARIN 1000 UNITS/ML 10 ML INJ CATHETER (00:10)
[2017-04-30] MEDS: FERROUS SULFATE (EC) 325 MG TAB PO ×3 (00:44→20:25)
[2017-04-30] MEDS: ATORVASTATIN 20 MG TAB PO ×2 (00:44→20:25)
[2017-04-30] MEDS: LEVOTHYROXINE 25 MCG TAB PO (06:04)
[2017-04-30] MEDS: FUROSEMIDE 40 MG TAB PO ×2 (06:04→18:08)
[2017-04-30 06:59] LABS: ANION GAP 14 (8-16); BLOOD UREA NITROGEN 14 mg/dl (7-20); CALCIUM 8.4 mg/dl (8.4-10.2); CARBON DIOXIDE 30 mmol/L (21-31); CHLORIDE 103 mmol/L (97-110); CREATININE 3.11 mg/dl (0.61-1.24); GLUCOSE 97 mg/dl (70-220); POTASSIUM 3.8 mmol/L (3.5-5.1); SODIUM 143 mmol/L (135-144)
[2017-04-30] MEDS: ACCU-CHEK XX ×4 (07:30→20:26)
[2017-04-30] MEDS: INSULIN ASPART [NOVOLOG] 3 ML PEN SC ×7 (08:00→20:26)
[2017-04-30] MEDS: ASPIRIN (EC) 81 MG TAB PO (09:01)
[2017-04-30] MEDS: SEVELAMER 800 MG TAB PO ×3 (09:01→17:49)
[2017-04-30] MEDS: THIAMINE 100 MG TAB PO (09:01)
[2017-04-30] MEDS: AMLODIPINE 10 MG TAB PO (09:01)
[2017-05-01] MEDS: LEVOTHYROXINE 25 MCG TAB PO (05:27)
[2017-05-01] MEDS: FUROSEMIDE 40 MG TAB PO ×2 (05:27→18:00)
[2017-05-01 05:41] LABS: ADD MAN DIFF? NO
[2017-05-01 05:44] LABS: BASOPHIL # 0.1 10^3/ul (0.0-0.1); BASOPHILS % 0.7 % (0.0-2.0); EOSINOPHILS # 0.3 10^3/ul (0.0-0.5); EOSINOPHILS % 2.7 % (0.0-7.0); HEMATOCRIT 30.7 % (42.0-52.0); HEMOGLOBIN 9.7 g/dl (14.0-18.0); LYMPHOCYTES # 3.3 10^3/ul (0.8-2.9); LYMPHOCYTES % 28.2 % (15.0-51.0); MEAN CORPUSCULAR HEMOGLOBIN 29.1 pg (29.0-33.0); MEAN CORPUSCULAR HGB CONC 31.6 g/dl (32.0-37.0); MEAN CORPUSCULAR VOLUME 92.2 fl (82.0-101.0); MEAN PLATELET VOLUME 10.6 fl (7.4-10.4); MONOCYTE # 0.9 10^3/ul (0.3-0.9); MONOCYTES % 7.6 % (0.0-11.0); NEUTROPHILS % 60.5 % (39.0-77.0); PLATELET COUNT 244 10^3/UL (140-415); RED BLOOD COUNT 3.33 10^6/ul (4.70-6.10); RED CELL DISTRIBUTION WIDTH 16.2 % (11.5-14.5)
[2017-05-01 05:44] LABS: WHITE BLOOD COUNT 11.6 10^3/ul (4.8-10.8)
[2017-05-01 06:09] LABS: INR 1.12; PROTIME 14.6 Sec (11.9-14.9); PT RATIO 1.1
[2017-05-01 06:47] LABS: ANION GAP 14 (8-16); BLOOD UREA NITROGEN 30 mg/dl (7-20); CARBON DIOXIDE 27 mmol/L (21-31); CHLORIDE 102 mmol/L (97-110); CREATININE 4.49 mg/dl (0.61-1.24); GLUCOSE 104 mg/dl (70-220); POTASSIUM 4.2 mmol/L (3.5-5.1); SODIUM 139 mmol/L (135-144)
[2017-05-01] MEDS ORDERED: CEFAZOLIN 1 GM INJ (07:00)
[2017-05-01] MEDS: INSULIN ASPART [NOVOLOG] 3 ML PEN SC ×7 (08:00→21:00)
[2017-05-01] MEDS: SEVELAMER 800 MG TAB PO ×3 (08:00→17:35)
[2017-05-01] MEDS: ACCU-CHEK XX ×4 (08:00→21:00)
[2017-05-01] MEDS: ASPIRIN (EC) 81 MG TAB PO (09:00)
[2017-05-01] MEDS: AMLODIPINE 10 MG TAB PO (09:00)
[2017-05-01] MEDS: FERROUS SULFATE (EC) 325 MG TAB PO ×2 (09:00→21:43)
[2017-05-01] MEDS: THIAMINE 100 MG TAB PO (09:00)
[2017-05-01] MEDS: DEXTROSE 5%-0.45% NACL 1,000 ML IV ×2 (13:37→23:57)
[2017-05-01] MEDS: EPOETIN 10000 UNITS/1 ML INJ (ESRD) SC (17:00)
[2017-05-01] MEDS ORDERED: FENTAnyl 50 MCG/ML VIAL (17:56)
[2017-05-01] MEDS ORDERED: MIDAZOLAM 1 MG/ML 2 ML INJ (17:56)
[2017-05-01] MEDS ORDERED: ONDANSETRON 4 MG INJ IV ×2 (18:00)
[2017-05-01] MEDS ORDERED: METOCLOPRAMIDE 10 MG INJ IV (18:00)
[2017-05-01] MEDS ORDERED: EPHEDrine SULFATE 50 MG/5 ML SYG IV (18:00)
[2017-05-01] MEDS ORDERED: FENTAnyl 50 MCG/ML VIAL IV ×2 (18:00)
[2017-05-01] MEDS ORDERED: NALBUPHINE HCL (10 MG/1 ML) INJ IV (18:00)
[2017-05-01] MEDS ORDERED: HYDROCODONE/APAP (5/325) TAB PO (18:00)
[2017-05-01] MEDS ORDERED: HYDROmorphONE 0.5 MG/0.5 ML SYG IV ×2 (18:00)
[2017-05-01] MEDS ORDERED: LABETALOL HCL 20MG INJ IV (18:00)
[2017-05-01] MEDS ORDERED: ACETAMINOPHEN 500 MG TAB PO (18:00)
[2017-05-01] MEDS ORDERED: TRIMETHOBENZAMIDE 100 MG/ML VIAL IM (18:00)
[2017-05-01] MEDS ORDERED: ALBUTEROL 0.083% (NEB) 2.5 MG/3 ML AMP HHN (18:00)
[2017-05-01] MEDS ORDERED: ALBUMIN HUMAN 5% 250 ML IV (18:00)
[2017-05-01] MEDS ORDERED: hydrALAzine 20 MG INJ IV (18:00)
[2017-05-01] MEDS ORDERED: DIPHENHYDRAMINE 50 MG INJ IV (18:00)
[2017-05-01] MEDS ORDERED: NALOXONE (0.4 MG/ML) INJ IV (18:00)
[2017-05-01] MEDS ORDERED: HYDROmorphONE (0.2 MG/ML) 10ML SYG IV (18:00)
[2017-05-01] MEDS ORDERED: ZOLPIDEM 5 MG TAB PO (18:00)
[2017-05-01] MEDS: ATORVASTATIN 20 MG TAB PO (21:43)
[2017-05-02] MEDS: GELATIN SIZE 100 SPONGE
[2017-05-02] MEDS: THROMBIN 5000 UNIT VIAL
[2017-05-02] MEDS: ACCU-CHEK XX ×4 (01:24→17:23)
[2017-05-02] MEDS: FUROSEMIDE 40 MG TAB PO ×2 (05:59→17:23)
[2017-05-02] MEDS: LEVOTHYROXINE 25 MCG TAB PO (05:59)
[2017-05-02] MEDS ORDERED: CEFAZOLIN 1 GM INJ (07:00)
[2017-05-02] MEDS ORDERED: EPHEDrine SULFATE 50 MG/5 ML SYG (07:00)
[2017-05-02] MEDS: INSULIN ASPART [NOVOLOG] 3 ML PEN SC ×7 (07:35→21:00)
[2017-05-02] MEDS: SEVELAMER 800 MG TAB PO ×3 (07:35→17:23)
[2017-05-02] MEDS: FERROUS SULFATE (EC) 325 MG TAB PO (08:55)
[2017-05-02] MEDS: ASPIRIN (EC) 81 MG TAB PO (08:55)
[2017-05-02] MEDS: AMLODIPINE 10 MG TAB PO (08:56)
[2017-05-02] MEDS: THIAMINE 100 MG TAB PO (08:56)
[2017-05-02] MEDS ORDERED: PROPOFOL 20 ML (09:07)
[2017-05-02] MEDS ORDERED: FENTAnyl 50 MCG/ML VIAL (09:07)
[2017-05-02] MEDS ORDERED: MIDAZOLAM 1 MG/ML 2 ML INJ (09:07)
[2017-05-02] MEDS ORDERED: DEXAMETHASONE 4 MG/ML 1 ML INJ (09:07)
[2017-05-02] MEDS ORDERED: ONDANSETRON 4 MG INJ (09:07)
[2017-05-02] MEDS ORDERED: LIDOCAINE 1% (MDV) 20 ML INJ (09:07)
[2017-05-02] MEDS ORDERED: POLYMYXIN/BACITRACIN 1L IRRIG (09:13)
[2017-05-02] MEDS ORDERED: morphine (1 MG/ML) 10ML SYRINGE IV (09:30)
[2017-05-02] MEDS ORDERED: HYDROmorphONE (0.2 MG/ML) 10ML SYG IV (09:30)
[2017-05-02] MEDS ORDERED: ONDANSETRON 4 MG INJ IV (09:30)
[2017-05-02] MEDS ORDERED: FENTAnyl 50 MCG/ML VIAL IV (09:30)
[2017-05-02] MEDS: HEPARIN 1000 UNITS/ML 10 ML INJ (09:58)
[2017-05-02] MEDS: BUPIVACAINE 0.25% (MPF) 30 ML INJ (09:58)
[2017-05-02] MEDS: LIDOCAINE 1% (MPF) 30 ML INJ (09:58)
[2017-05-02] MEDS ORDERED: HEPARIN 1000 UNITS/ML 10 ML INJ (10:18)
[2017-05-03] MEDS: HEPARIN 1000 UNITS/ML 10 ML INJ CATHETER (00:41)
[2017-05-03] MEDS: FERROUS SULFATE (EC) 325 MG TAB PO ×3 (01:26→08:28)
[2017-05-03] MEDS: ATORVASTATIN 20 MG TAB PO ×2 (01:26→01:32)
[2017-05-03] MEDS: LEVOTHYROXINE 25 MCG TAB PO (05:47)
[2017-05-03] MEDS: FUROSEMIDE 40 MG TAB PO (05:47)
[2017-05-03] MEDS: ACCU-CHEK XX ×2 (07:30→11:30)
[2017-05-03] MEDS: THIAMINE 100 MG TAB PO (08:28)
[2017-05-03] MEDS: SEVELAMER 800 MG TAB PO ×2 (08:28→12:12)
[2017-05-03] MEDS: ASPIRIN (EC) 81 MG TAB PO (08:28)
[2017-05-03] MEDS: AMLODIPINE 10 MG TAB PO (08:29)
[2017-05-03] MEDS: INSULIN ASPART [NOVOLOG] 3 ML PEN SC ×4 (08:30→12:16)
== END 2017-05-03 15:34 | disposition home or self-care (01) | DRG 673 ==
LOC: PP2 04-15 17:38 → FTE 11:42 → MS3 18:55
PROC: 031809F Bypass Left Brachial Artery to Lower Arm Vein with Autologous Venous Tissue, Open Approach (ICD-10-PCS; principal; 2017-05-02 09:29)
PROC: B5131ZA Fluoroscopy of Right Jugular Veins using Low Osmolar Contrast, Guidance (ICD-10-PCS; 2017-05-02 09:29)
PROC: 5A1D70Z Performance of Urinary Filtration, Intermittent, Less than 6 Hours Per Day (ICD-10-PCS; 2017-05-02 09:29)
PROC: 0JH63XZ Insertion of Tunneled Vascular Access Device into Chest Subcutaneous Tissue and Fascia, Percutaneous Approach (ICD-10-PCS; 2017-05-02 09:29)
PROC: 05HM33Z Insertion of Infusion Device into Right Internal Jugular Vein, Percutaneous Approach (ICD-10-PCS; 2017-05-02 09:29)
DX: I12.0 Hypertensive chronic kidney disease with stage 5 chronic kidney disease or end stage renal disease (principal); N18.6 End stage renal disease; N17.9 Acute kidney failure, unspecified; E87.0 Hyperosmolality and hypernatremia; E87.2 Acidosis; E87.8 Other disorders of electrolyte and fluid balance, not elsewhere classified; E11.22 Type 2 diabetes mellitus with diabetic chronic kidney disease; E83.42 Hypomagnesemia
CPT/HCPCS: 36415; 36558; 71045; 76775; 76942; 80048; 80053; 80061; 81001; 81003; 82270; 82436; 82570; 82607; 82728; 82962; 83036; 83540; 83735; 83880; 83970; 84100; 84133; 84155; 84156; 84165; 84166; 84300; 84443; 84484; 85025; 85610; 85651; 85730; 86140; 86160; 86704; 86709; 86803; 87086; 87340; 90935; 93005; 93306; 93970; 96374; 99285-25

== ENCOUNTER 2017-09-19 11:14 | Day surgery (SDC) | payer OTHER ==
[2017-09-19 13:17] LABS: ANION GAP 15 (8-16); CARBON DIOXIDE 31 mmol/L (21-31); CHLORIDE 101 mmol/L (97-110); GLUCOSE 109 mg/dl (70-220)
[2017-09-19 13:21] LABS: SODIUM 141 mmol/L (135-144)
[2017-09-19 13:22] LABS: BLOOD UREA NITROGEN 29 mg/dl (7-20); CALCIUM 8.7 mg/dl (8.4-10.2); CREATININE 4.27 mg/dl (0.61-1.24)
[2017-09-19 13:26] LABS: POTASSIUM 6.2 mmol/L (3.5-5.1)
== END 2017-09-19 13:49 | disposition home or self-care (01) ==
LOC: SDS 11:14
DX: I12.0 Hypertensive chronic kidney disease with stage 5 chronic kidney disease or end stage renal disease (principal); N18.6 End stage renal disease; Z53.9 Procedure and treatment not carried out, unspecified reason
CPT/HCPCS: 80048; 82962

== ENCOUNTER 2017-09-19 13:56 | Emergency (ER) | payer OTHER ==
[2017-09-19 14:43] LABS: ADD MAN DIFF? NO
[2017-09-19 14:48] LABS: BASOPHIL # 0.1 10^3/ul (0.0-0.1); BASOPHILS % 0.7 % (0.0-2.0); EOSINOPHILS # 0.5 10^3/ul (0.0-0.5); HEMATOCRIT 40.2 % (42.0-52.0); HEMOGLOBIN 12.8 g/dl (14.0-18.0); LYMPHOCYTES # 2.2 10^3/ul (0.8-2.9); MEAN CORPUSCULAR HGB CONC 31.8 g/dl (32.0-37.0); MEAN CORPUSCULAR VOLUME 94.1 fl (82.0-101.0); MEAN PLATELET VOLUME 10.8 fl (7.4-10.4); MONOCYTE # 0.7 10^3/ul (0.3-0.9); MONOCYTES % 8.3 % (0.0-11.0); NEUTROPHIL # 5.5 10^3/ul (1.6-7.5); NEUTROPHILS % 61.7 % (39.0-77.0); PLATELET COUNT 257 10^3/UL (140-415); RED BLOOD COUNT 4.27 10^6/ul (4.70-6.10); RED CELL DISTRIBUTION WIDTH 15.3 % (11.5-14.5)
[2017-09-19 14:48] LABS: WHITE BLOOD COUNT 8.9 10^3/ul (4.8-10.8)
[2017-09-19 15:13] LABS: ANION GAP 12 (8-16); BLOOD UREA NITROGEN 29 mg/dl (7-20); CALCIUM 8.9 mg/dl (8.4-10.2); CARBON DIOXIDE 32 mmol/L (21-31); CHLORIDE 102 mmol/L (97-110); CREATININE 4.77 mg/dl (0.61-1.24); GLUCOSE 98 mg/dl (70-220); POTASSIUM 4.1 mmol/L (3.5-5.1); SODIUM 142 mmol/L (135-144)
== END 2017-09-19 18:22 | disposition home or self-care (01) ==
LOC: E/R 18:22
DX: I12.0 Hypertensive chronic kidney disease with stage 5 chronic kidney disease or end stage renal disease (principal); N18.6 End stage renal disease; E11.22 Type 2 diabetes mellitus with diabetic chronic kidney disease; Z79.4 Long term (current) use of insulin; Z79.82 Long term (current) use of aspirin; Z99.2 Dependence on renal dialysis
CPT/HCPCS: 36415; 80048; 84484; 85025; 93005; 99284-25

== ENCOUNTER 2017-09-21 10:33 | Day surgery (SDC) | payer OTHER ==
[2017-09-21 12:05] LABS: ANION GAP 15 (8-16); CARBON DIOXIDE 34 mmol/L (21-31); CHLORIDE 95 mmol/L (97-110); GLUCOSE 131 mg/dl (70-220)
[2017-09-21 12:11] LABS: BLOOD UREA NITROGEN 25 mg/dl (7-20); CALCIUM 8.6 mg/dl (8.4-10.2); CREATININE 4.05 mg/dl (0.61-1.24); POTASSIUM 4.6 mmol/L (3.5-5.1); SODIUM 139 mmol/L (135-144)
[2017-09-21] MEDS ORDERED: HEPARIN 1000 UNITS/NS (A-LINE) 1,000 ML (12:53)
[2017-09-21] MEDS ORDERED: LIDOCAINE 1% (MDV) 20 ML INJ (12:53)
[2017-09-21] MEDS ORDERED: FENTAnyl 50 MCG/ML VIAL (12:54)
[2017-09-21] MEDS ORDERED: MIDAZOLAM 1 MG/ML 2 ML INJ (12:54)
[2017-09-21] MEDS ORDERED: IOHEXOL 350MG/ML 50 ML BTL ×2 (13:25→13:45)
== END 2017-09-21 15:15 | disposition home or self-care (01) ==
LOC: SDS 10:33
DX: T82.590A Other mechanical complication of surgically created arteriovenous fistula, initial encounter (principal); Y84.1 Kidney dialysis as the cause of abnormal reaction of the patient, or of later complication, without mention of misadventure at the time of the procedure; I12.0 Hypertensive chronic kidney disease with stage 5 chronic kidney disease or end stage renal disease; N18.6 End stage renal disease; I10 Essential (primary) hypertension
CPT/HCPCS: 36901; 37248; 37249; 75827; 80048; 82962

== ENCOUNTER 2017-11-21 14:30 | Inpatient (IN) | payer OTHER ==
[2017-11-21] MEDS ORDERED: NITROGLYCERIN (SL) 0.4 MG TAB SL ×2 (15:00→18:30)
[2017-11-21 15:02] LABS: ADD MAN DIFF? NO
[2017-11-21 15:07] LABS: BASOPHIL # 0.1 10^3/ul (0.0-0.1); BASOPHILS % 0.6 % (0.0-2.0); EOSINOPHILS # 0.3 10^3/ul (0.0-0.5); EOSINOPHILS % 3.1 % (0.0-7.0); HEMATOCRIT 41.9 % (42.0-52.0); HEMOGLOBIN 13.8 g/dl (14.0-18.0); IMMATURE GRANS #M 0.04 10^3/ul; IMMATURE GRANS % (M) 0.4 %; LYMPHOCYTES # 1.9 10^3/ul (0.8-2.9); LYMPHOCYTES % 17.6 % (15.0-51.0); MEAN CORPUSCULAR HEMOGLOBIN 29.4 pg (29.0-33.0); MEAN CORPUSCULAR HGB CONC 32.9 g/dl (32.0-37.0); MEAN CORPUSCULAR VOLUME 89.1 fl (82.0-101.0); MEAN PLATELET VOLUME 11.6 fl (7.4-10.4); MONOCYTE # 1.1 10^3/ul (0.3-0.9); MONOCYTES % 10.2 % (0.0-11.0); NEUTROPHIL # 7.3 10^3/ul (1.6-7.5); NEUTROPHILS % 68.1 % (39.0-77.0); PLATELET COUNT 164 10^3/UL (140-415); RED CELL DISTRIBUTION WIDTH 15.1 % (11.5-14.5)
[2017-11-21 15:07] LABS: WHITE BLOOD COUNT 10.7 10^3/ul (4.8-10.8)
[2017-11-21] MEDS: morphine 2 MG INJ IV (15:08)
[2017-11-21] MEDS: ASPIRIN 325 MG TAB PO (15:08)
[2017-11-21] MEDS: ONDANSETRON 4 MG INJ IV (15:08)
[2017-11-21] MEDS: DILTIAZEM 25 MG INJ IV (15:16)
[2017-11-21 15:27] LABS: INR 1.06; PARTIAL THROMBOPLASTIN TIME 28.1 Sec (25.0-35.0); PROTIME 13.9 Sec (11.9-14.9); PT RATIO 1.1
[2017-11-21 15:29] LABS: ALANINE AMINOTRANSFERASE 25 IU/L (13-69); ALBUMIN 4.2 g/dl (3.3-4.9); ALBUMIN/GLOBULIN RATIO 1.16; ALKALINE PHOSPHATASE 112 IU/L (42-121); ANION GAP 18 (8-16); ASPARTATE AMINO TRANSFERASE 24 IU/L (15-46); BILIRUBIN,INDIRECT 0.9 mg/dl (0-1.1); BILIRUBIN,TOTAL 0.9 mg/dl (0.2-1.3); BLOOD UREA NITROGEN 40 mg/dl (7-20); CALCIUM 8.5 mg/dl (8.4-10.2); CARBON DIOXIDE 26 mmol/L (21-31); CHLORIDE 99 mmol/L (97-110); CREATINE KINASE 141 IU/L (23-200); CREATININE 5.01 mg/dl (0.61-1.24); GLUCOSE 124 mg/dl (70-220); POTASSIUM 4.3 mmol/L (3.5-5.1); SODIUM 139 mmol/L (135-144); TOTAL PROTEIN 7.8 g/dl (6.1-8.1)
[2017-11-21 15:40] LABS: CK INDEX 1.3; CK-MB 1.87 ng/ml (0.0-2.4); TROPONIN-I 0.075 ng/ml (0.000-0.120)
[2017-11-21 15:54] LABS: B-TYPE NATRIURETIC PEPTIDE 44500 PG/ML (0-125)
[2017-11-21] MEDS: DILTIAZEM-D5W 125MG/125ML DRIP 125 ML IV (16:06)
[2017-11-21] MEDS ORDERED: ACETAMINOPHEN 325 MG TAB PO ×2 (17:30→18:30)
[2017-11-21] MEDS ORDERED: ONDANSETRON 4 MG INJ IV ×2 (17:30→18:30)
[2017-11-21] MEDS ORDERED: MAGNESIUM HYDROXIDE 30ML CUP PO (18:30)
[2017-11-21] MEDS ORDERED: HYDROCODONE/APAP (5/325) TAB PO (18:30)
[2017-11-21] MEDS ORDERED: morphine 2 MG INJ IV (18:30)
[2017-11-21] MEDS ORDERED: DOCUSATE SODIUM 100 MG CAP PO (18:30)
[2017-11-21] MEDS ORDERED: LORAZEPAM 2 MG INJ IV (18:30)
[2017-11-21] MEDS ORDERED: NA PHOSPHATE/BIPHOS 133 ML ENEMA PR (18:30)
[2017-11-21] MEDS ORDERED: ALBUTEROL/IPRATROPIUM (NEB) 3 ML AMP HHN (18:30)
[2017-11-21] MEDS ORDERED: NACL 0.9% 3 ML SYG IV (18:30)
[2017-11-21 21:39] LABS: CREATINE KINASE 100 IU/L (23-200)
[2017-11-21 21:53] LABS: CK INDEX 1.6; CK-MB 1.64 ng/ml (0.0-2.4); TROPONIN-I 0.102 ng/ml (0.000-0.120)
[2017-11-21] MEDS: ATORVASTATIN 20 MG TAB PO (22:00)
[2017-11-21] MEDS: HEPARIN 5,000 UNIT/0.5 ML VIAL SC (22:06)
[2017-11-22] MEDS ORDERED: GLUCOSE GEL 15 GRAM TUBE PO ×2 (00:30)
[2017-11-22] MEDS ORDERED: GLUCOSE GEL 15 GRAM TUBE BUCCAL (00:30)
[2017-11-22] MEDS ORDERED: DEXTROSE 50% 50 ML SYRINGE IV ×2 (00:30)
[2017-11-22] MEDS ORDERED: GLUCAGON 1 MG INJ IM (00:30)
[2017-11-22 01:21] LABS: CREATINE KINASE 86 IU/L (23-200)
[2017-11-22] MEDS: ACCU-CHEK XX (01:23)
[2017-11-22 01:33] LABS: CK INDEX 1.9; CK-MB 1.65 ng/ml (0.0-2.4); TROPONIN-I 0.104 ng/ml (0.000-0.120)
[2017-11-22] MEDS: LEVOTHYROXINE 25 MCG TAB PO (05:23)
[2017-11-22] MEDS: PANTOPRAZOLE (EC) 40 MG TAB PO (05:23)
[2017-11-22 06:46] LABS: ADD MAN DIFF? NO
[2017-11-22 06:53] LABS: BASOPHILS % 0.5 % (0.0-2.0); EOSINOPHILS # 0.4 10^3/ul (0.0-0.5); HEMATOCRIT 37.9 % (42.0-52.0); HEMOGLOBIN 12.3 g/dl (14.0-18.0); IMMATURE GRANS #M 0.03 10^3/ul; IMMATURE GRANS % (M) 0.4 %; LYMPHOCYTES % 23.7 % (15.0-51.0); MEAN CORPUSCULAR HGB CONC 32.5 g/dl (32.0-37.0); MEAN CORPUSCULAR VOLUME 89.4 fl (82.0-101.0); MEAN PLATELET VOLUME 12.3 fl (7.4-10.4); MONOCYTES % 11.5 % (0.0-11.0); NEUTROPHIL # 4.9 10^3/ul (1.6-7.5); NEUTROPHILS % 58.9 % (39.0-77.0); PLATELET COUNT 174 10^3/UL (140-415); RED BLOOD COUNT 4.24 10^6/ul (4.70-6.10); RED CELL DISTRIBUTION WIDTH 15.4 % (11.5-14.5)
[2017-11-22 06:53] LABS: WHITE BLOOD COUNT 8.2 10^3/ul (4.8-10.8)
[2017-11-22 07:17] LABS: HEMOGLOBIN A1C 6.3 % (0-5.9)
[2017-11-22 07:28] LABS: CHOL/HDL RATIO 2.9 RATIO; CREATINE KINASE 89 IU/L (23-200); HDL CHOLESTEROL 42 mg/dl (30-78); LDL CHOLESTEROL,CALCULATED 59 mg/dl; TRIGLYCERIDES 115 mg/dl (0-149)
[2017-11-22 07:28] LABS: CHOLESTEROL 124 mg/dl (100-200)
[2017-11-22 07:40] LABS: CK INDEX 1.7; CK-MB 1.51 ng/ml (0.0-2.4); TROPONIN-I 0.099 ng/ml (0.000-0.120)
[2017-11-22 07:54] LABS: ANION GAP 17 (8-16); BLOOD UREA NITROGEN 57 mg/dl (7-20); CALCIUM 7.8 mg/dl (8.4-10.2); CARBON DIOXIDE 28 mmol/L (21-31); CHLORIDE 101 mmol/L (97-110); CREATININE 7.03 mg/dl (0.61-1.24); GLUCOSE 153 mg/dl (70-220); MAGNESIUM 2.1 mg/dl (1.7-2.5); PHOSPHORUS 6.9 mg/dl (2.5-4.9); POTASSIUM 4.1 mmol/L (3.5-5.1); SODIUM 142 mmol/L (135-144)
[2017-11-22] MEDS: INSULIN ASPART [NOVOLOG] 3 ML PEN SC ×4 (07:55→20:18)
[2017-11-22] MEDS: SEVELAMER CARBONATE 800 MG TABLET PO ×3 (08:51→16:54)
[2017-11-22] MEDS: THIAMINE 100 MG TAB PO (08:52)
[2017-11-22] MEDS: ASPIRIN (EC) 325 MG TAB PO (08:52)
[2017-11-22] MEDS: HEPARIN 5,000 UNIT/0.5 ML VIAL SC ×2 (08:54→20:18)
[2017-11-22] MEDS: hydrALAzine 20 MG INJ IV (20:03)
[2017-11-22] MEDS: ATORVASTATIN 20 MG TAB PO (20:04)
[2017-11-22] MEDS: METOPROLOL 25 MG TAB PO (20:05)
[2017-11-23] MEDS: ACCU-CHEK XX ×2 (02:23→23:54)
[2017-11-23] MEDS: LEVOTHYROXINE 25 MCG TAB PO (05:23)
[2017-11-23] MEDS: PANTOPRAZOLE (EC) 40 MG TAB PO (05:23)
[2017-11-23 07:24] LABS: ADD MAN DIFF? NO
[2017-11-23 07:31] LABS: BASOPHIL # 0.1 10^3/ul (0.0-0.1); BASOPHILS % 0.5 % (0.0-2.0); EOSINOPHILS # 0.5 10^3/ul (0.0-0.5); EOSINOPHILS % 4.9 % (0.0-7.0); HEMATOCRIT 38.7 % (42.0-52.0); HEMOGLOBIN 12.5 g/dl (14.0-18.0); LYMPHOCYTES # 2.2 10^3/ul (0.8-2.9); LYMPHOCYTES % 23.2 % (15.0-51.0); MEAN CORPUSCULAR HEMOGLOBIN 28.9 pg (29.0-33.0); MEAN CORPUSCULAR HGB CONC 32.3 g/dl (32.0-37.0); MEAN CORPUSCULAR VOLUME 89.4 fl (82.0-101.0); MONOCYTE # 0.8 10^3/ul (0.3-0.9); NEUTROPHIL # 5.8 10^3/ul (1.6-7.5); NEUTROPHILS % 62.2 % (39.0-77.0); PLATELET COUNT 184 10^3/UL (140-415); RED BLOOD COUNT 4.33 10^6/ul (4.70-6.10)
[2017-11-23 07:31] LABS: WHITE BLOOD COUNT 9.3 10^3/ul (4.8-10.8)
[2017-11-23] MEDS: INSULIN ASPART [NOVOLOG] 3 ML PEN SC ×4 (07:39→20:57)
[2017-11-23 07:53] LABS: ANION GAP 19 (8-16); BLOOD UREA NITROGEN 76 mg/dl (7-20); CALCIUM 7.4 mg/dl (8.4-10.2); CARBON DIOXIDE 23 mmol/L (21-31); CHLORIDE 104 mmol/L (97-110); CREATININE 8.03 mg/dl (0.61-1.24); GLUCOSE 105 mg/dl (70-220); POTASSIUM 5.1 mmol/L (3.5-5.1); SODIUM 141 mmol/L (135-144)
[2017-11-23] MEDS: SEVELAMER CARBONATE 800 MG TABLET PO ×3 (08:48→17:16)
[2017-11-23] MEDS: ASPIRIN (EC) 325 MG TAB PO (08:48)
[2017-11-23] MEDS: THIAMINE 100 MG TAB PO (08:48)
[2017-11-23] MEDS: METOPROLOL 25 MG TAB PO (08:49)
[2017-11-23] MEDS: HEPARIN 5,000 UNIT/0.5 ML VIAL SC ×2 (09:02→21:02)
[2017-11-23 12:16] LABS: HEPATITIS B SURFACE ANTIGEN NEGATIVE (NEGATIVE)
[2017-11-23 12:35] LABS: HEPATITIS B SURFACE ANTIBODY POSITIVE (NEGATIVE)
[2017-11-23] MEDS: REGADENOSON 0.4 MG/5 ML SYG (13:31)
[2017-11-23] MEDS: hydrALAzine 20 MG INJ IV (15:59)
[2017-11-23] MEDS: ATORVASTATIN 20 MG TAB PO (20:58)
[2017-11-24] MEDS: LEVOTHYROXINE 25 MCG TAB PO (05:41)
[2017-11-24] MEDS: PANTOPRAZOLE (EC) 40 MG TAB PO (05:41)
[2017-11-24 07:17] LABS: ADD MAN DIFF? NO
[2017-11-24 07:19] LABS: BASOPHIL # 0.1 10^3/ul (0.0-0.1); BASOPHILS % 0.6 % (0.0-2.0); EOSINOPHILS # 0.4 10^3/ul (0.0-0.5); EOSINOPHILS % 4.4 % (0.0-7.0); HEMATOCRIT 39.5 % (42.0-52.0); HEMOGLOBIN 12.8 g/dl (14.0-18.0); LYMPHOCYTES # 1.8 10^3/ul (0.8-2.9); LYMPHOCYTES % 22.6 % (15.0-51.0); MEAN CORPUSCULAR HEMOGLOBIN 28.8 pg (29.0-33.0); MEAN CORPUSCULAR HGB CONC 32.4 g/dl (32.0-37.0); MEAN CORPUSCULAR VOLUME 88.8 fl (82.0-101.0); MEAN PLATELET VOLUME 11.9 fl (7.4-10.4); MONOCYTE # 0.7 10^3/ul (0.3-0.9); NEUTROPHIL # 5.1 10^3/ul (1.6-7.5); PLATELET COUNT 200 10^3/UL (140-415); RED BLOOD COUNT 4.45 10^6/ul (4.70-6.10)
[2017-11-24 07:37] LABS: ANION GAP 16 (8-16); BLOOD UREA NITROGEN 46 mg/dl (7-20); CARBON DIOXIDE 30 mmol/L (21-31); CHLORIDE 98 mmol/L (97-110); CREATININE 5.99 mg/dl (0.61-1.24); GLUCOSE 183 mg/dl (70-220); SODIUM 139 mmol/L (135-144)
[2017-11-24] MEDS: ASPIRIN (EC) 325 MG TAB PO (08:26)
[2017-11-24] MEDS: SEVELAMER CARBONATE 800 MG TABLET PO ×2 (08:26→11:41)
[2017-11-24] MEDS: THIAMINE 100 MG TAB PO (08:26)
[2017-11-24] MEDS: INSULIN ASPART [NOVOLOG] 3 ML PEN SC ×2 (08:33→11:41)
[2017-11-24] MEDS: HEPARIN 5,000 UNIT/0.5 ML VIAL SC (08:33)
== END 2017-11-24 16:50 | disposition home or self-care (01) | DRG 308 ==
LOC: E/R 14:30 → TEL 17:08
PROC: 5A1D70Z Performance of Urinary Filtration, Intermittent, Less than 6 Hours Per Day (ICD-10-PCS; principal; 2017-11-23)
DX: I48.0 Paroxysmal atrial fibrillation (principal); N18.6 End stage renal disease; I12.0 Hypertensive chronic kidney disease with stage 5 chronic kidney disease or end stage renal disease; E11.22 Type 2 diabetes mellitus with diabetic chronic kidney disease; R07.9 Chest pain, unspecified; E78.5 Hyperlipidemia, unspecified; E03.9 Hypothyroidism, unspecified; Z99.2 Dependence on renal dialysis; Z79.4 Long term (current) use of insulin; Z79.82 Long term (current) use of aspirin; Z87.891 Personal history of nicotine dependence
CPT/HCPCS: 71045; 78452; 80048; 80053; 80061; 82550; 82553; 82962; 83036; 83735; 83880; 84100; 84439; 84443; 84484; 85025; 85610; 85730; 86706; 87340; 90935; 93005; 93017; 93306; 96365; 96375; 97161; 97167; 99291-25

== ENCOUNTER 2018-04-30 19:42 | Inpatient (IN) | payer OTHER ==
[2018-04-30 19:59] LABS: ADD MAN DIFF? NO
[2018-04-30 20:11] LABS: WHITE BLOOD COUNT 14.6 10^3/ul (4.8-10.8)
[2018-04-30 20:11] LABS: BASOPHIL # 0.1 10^3/ul (0.0-0.1); BASOPHILS % 0.3 % (0.0-2.0); EOSINOPHILS # 0.4 10^3/ul (0.0-0.5); EOSINOPHILS % 2.4 % (0.0-7.0); HEMATOCRIT 45.8 % (42.0-52.0); HEMOGLOBIN 14.5 g/dl (14.0-18.0); LYMPHOCYTES # 3.7 10^3/ul (0.8-2.9); LYMPHOCYTES % 25.1 % (15.0-51.0); MEAN CORPUSCULAR HEMOGLOBIN 29.7 pg (29.0-33.0); MEAN CORPUSCULAR HGB CONC 31.7 g/dl (32.0-37.0); MEAN CORPUSCULAR VOLUME 93.7 fl (82.0-101.0); MEAN PLATELET VOLUME 11.1 fl (7.4-10.4); NEUTROPHIL # 9.5 10^3/ul (1.6-7.5); NEUTROPHILS % 64.9 % (39.0-77.0); PLATELET COUNT 241 10^3/UL (140-415); RED BLOOD COUNT 4.89 10^6/ul (4.70-6.10); RED CELL DISTRIBUTION WIDTH 15.3 % (11.5-14.5)
[2018-04-30] MEDS: DILTIAZEM 25 MG INJ IV ×2 (20:12→23:33)
[2018-04-30 20:35] LABS: ALANINE AMINOTRANSFERASE 24 IU/L (13-69); ALBUMIN 4.9 g/dl (3.3-4.9); ALBUMIN/GLOBULIN RATIO 1.11; ALKALINE PHOSPHATASE 111 IU/L (42-121); ANION GAP 17 (5-13); ASPARTATE AMINO TRANSFERASE 25 IU/L (15-46); BILIRUBIN,INDIRECT 0.6 mg/dl (0-1.1); BILIRUBIN,TOTAL 0.6 mg/dl (0.2-1.3); BLOOD UREA NITROGEN 71 mg/dl (7-20); CALCIUM 8.8 mg/dl (8.4-10.2); CARBON DIOXIDE 28 mmol/L (21-31); CHLORIDE 96 mmol/L (97-110); CREATININE 9.11 mg/dl (0.61-1.24); Estimated GFR 6 mL/min (>60); GLUCOSE 206 mg/dl (70-220); POTASSIUM 4.1 mmol/L (3.5-5.1); SODIUM 141 mmol/L (135-144); TOTAL PROTEIN 9.3 g/dl (6.1-8.1)
[2018-04-30] MEDS ORDERED: ACETAMINOPHEN 325 MG TAB PO (21:00)
[2018-04-30] MEDS ORDERED: ONDANSETRON 4 MG INJ IV (21:00)
[2018-04-30 21:01] LABS: B-TYPE NATRIURETIC PEPTIDE 35700 PG/ML (0-125)
[2018-04-30 21:30] LABS: Arterial Base Excess -2.5 mmol/L (-3.0-3); Arterial Blood Gas Oxygen Sat 99.8 mmHG (95.0-98.0); Arterial COHb 0.5 % (0.0-3.0); Arterial Fraction of Oxyhgb 98.9 % (93.0-99.0); Arterial HCO3 21.5 mmol/L (22.0-26.0); Arterial MetHb 0.4 % (0.0-1.5); Arterial pCO2 34.7 mmhg (35-45); Blood Gas IEPAP 15/5; Blood Gas PS 10; MODE MASK - BIPAP; Site Right Brachial
[2018-04-30] MEDS: CEFEPIME 2GM/50 ML (PMX) 50 ML IVPB (22:36)
[2018-04-30] MEDS: VANCOMYCIN 1 GM (PMX) 250 ML IVPB (22:51)
[2018-04-30] MEDS: APIXABAN 5 MG TABLET PO (23:57)
[2018-05-01 00:15] LABS: D-DIMER 1203.03 ng/ml (<460)
[2018-05-01 00:23] LABS: LACTIC ACID 1.5 mmol/L (0.5-2.0)
[2018-05-01 00:48] LABS: CREATINE KINASE 54 IU/L (23-200)
[2018-05-01] MEDS: CEFTRIAXONE 2 GM/50 ML (PMX) 50 ML IVPB ×2 (01:00→21:08)
[2018-05-01 01:35] LABS: TROPONIN-I 0.121 ng/ml (0.000-0.120)
[2018-05-01] MEDS: AZITHROMYCIN 500MG/NS (PMX) 250 ML IVPB (01:40)
[2018-05-01 01:59] LABS: CK INDEX 2.6; CK-MB 1.41 ng/ml (0.0-2.4)
[2018-05-01] MEDS ORDERED: ALBUTEROL/IPRATROPIUM (NEB) 3 ML AMP HHN (02:30)
[2018-05-01 05:39] LABS: ADD MAN DIFF? NO
[2018-05-01 05:48] LABS: WHITE BLOOD COUNT 8.9 10^3/ul (4.8-10.8)
[2018-05-01 05:48] LABS: BASOPHILS % 0.5 % (0.0-2.0); EOSINOPHILS % 0.3 % (0.0-7.0); HEMOGLOBIN 10.8 g/dl (14.0-18.0); LYMPHOCYTES # 1.9 10^3/ul (0.8-2.9); LYMPHOCYTES % 21.6 % (15.0-51.0); MEAN CORPUSCULAR HEMOGLOBIN 29.8 pg (29.0-33.0); MEAN CORPUSCULAR HGB CONC 31.8 g/dl (32.0-37.0); MEAN CORPUSCULAR VOLUME 93.9 fl (82.0-101.0); MEAN PLATELET VOLUME 11.6 fl (7.4-10.4); MONOCYTE # 0.8 10^3/ul (0.3-0.9); MONOCYTES % 9.5 % (0.0-11.0); NEUTROPHILS % 67.9 % (39.0-77.0); PLATELET COUNT 199 10^3/UL (140-415); RED BLOOD COUNT 3.62 10^6/ul (4.70-6.10); RED CELL DISTRIBUTION WIDTH 15.3 % (11.5-14.5)
[2018-05-01 06:02] LABS: LACTIC ACID 1.9 mmol/L (0.5-2.0)
[2018-05-01 06:25] LABS: CREATINE KINASE 53 IU/L (23-200)
[2018-05-01] MEDS: LEVOTHYROXINE 25 MCG TAB PO (06:33)
[2018-05-01 06:38] LABS: CK INDEX 2.5; CK-MB 1.35 ng/ml (0.0-2.4)
[2018-05-01 06:40] LABS: TROPONIN-I 0.201 ng/ml (0.000-0.120)
[2018-05-01 06:53] LABS: ANION GAP 16 (5-13); BLOOD UREA NITROGEN 83 mg/dl (7-20); CALCIUM 7.9 mg/dl (8.4-10.2); CARBON DIOXIDE 26 mmol/L (21-31); CHLORIDE 98 mmol/L (97-110); CREATININE 8.94 mg/dl (0.61-1.24); Estimated GFR 6 mL/min (>60); GLUCOSE 139 mg/dl (70-220); POTASSIUM 5.6 mmol/L (3.5-5.1); SODIUM 140 mmol/L (135-144)
[2018-05-01] MEDS: THIAMINE 100 MG TAB PO (08:27)
[2018-05-01] MEDS: APIXABAN 5 MG TABLET PO ×2 (08:27→21:08)
[2018-05-01] MEDS: SEVELAMER CARBONATE 800 MG TABLET PO ×3 (08:27→17:20)
[2018-05-01] MEDS: SOD CHLORIDE 0.9% 100 ML (09:07)
[2018-05-01] MEDS: IOHEXOL 100 ML (09:08)
[2018-05-01 20:19] LABS: TROPONIN-I 0.128 ng/ml (0.000-0.120)
[2018-05-01] MEDS: ATORVASTATIN 20 MG TAB PO (21:08)
[2018-05-01] MEDS: FAMOTIDINE 20 MG TAB PO (21:08)
[2018-05-02 05:38] LABS: ADD MAN DIFF? NO
[2018-05-02 05:44] LABS: BASOPHILS % 0.4 % (0.0-2.0); EOSINOPHILS # 0.5 10^3/ul (0.0-0.5); EOSINOPHILS % 5.2 % (0.0-7.0); HEMATOCRIT 35.8 % (42.0-52.0); HEMOGLOBIN 11.6 g/dl (14.0-18.0); LYMPHOCYTES % 20.6 % (15.0-51.0); MEAN CORPUSCULAR HEMOGLOBIN 29.8 pg (29.0-33.0); MEAN CORPUSCULAR HGB CONC 32.4 g/dl (32.0-37.0); MEAN PLATELET VOLUME 11.1 fl (7.4-10.4); MONOCYTE # 0.9 10^3/ul (0.3-0.9); MONOCYTES % 9.3 % (0.0-11.0); NEUTROPHIL # 6.1 10^3/ul (1.6-7.5); NEUTROPHILS % 64.2 % (39.0-77.0); PLATELET COUNT 221 10^3/UL (140-415); RED BLOOD COUNT 3.89 10^6/ul (4.70-6.10); RED CELL DISTRIBUTION WIDTH 15.2 % (11.5-14.5)
[2018-05-02 05:44] LABS: WHITE BLOOD COUNT 9.5 10^3/ul (4.8-10.8)
[2018-05-02] MEDS: LEVOTHYROXINE 25 MCG TAB PO (05:50)
[2018-05-02 06:08] LABS: ANION GAP 15 (5-13); Estimated GFR 6 mL/min (>60)
[2018-05-02 06:18] LABS: TROPONIN-I 0.092 ng/ml (0.000-0.120)
[2018-05-02 06:20] LABS: MAGNESIUM 2.2 mg/dl (1.7-2.5)
[2018-05-02 06:41] LABS: BLOOD UREA NITROGEN 58 mg/dl (7-20); CALCIUM 8.3 mg/dl (8.4-10.2); CARBON DIOXIDE 27 mmol/L (21-31); CHLORIDE 97 mmol/L (97-110); CREATININE 8.56 mg/dl (0.61-1.24); GLUCOSE 141 mg/dl (70-220); POTASSIUM 4.9 mmol/L (3.5-5.1); SODIUM 139 mmol/L (135-144)
[2018-05-02] MEDS: THIAMINE 100 MG TAB PO (07:52)
[2018-05-02] MEDS: SEVELAMER CARBONATE 800 MG TABLET PO ×3 (07:52→16:28)
[2018-05-02] MEDS: APIXABAN 5 MG TABLET PO ×2 (08:02→20:46)
[2018-05-02] MEDS: CHOLECALCIFEROL 1,000 UNIT TAB PO (08:27)
[2018-05-02] MEDS: LISINOPRIL 20 MG TAB PO ×2 (13:40→20:47)
[2018-05-02] MEDS: ATORVASTATIN 20 MG TAB PO (20:46)
[2018-05-02] MEDS: FAMOTIDINE 20 MG TAB PO (20:47)
[2018-05-02] MEDS: CEFTRIAXONE 2 GM/50 ML (PMX) 50 ML IVPB (20:48)
[2018-05-03] MEDS: LEVOTHYROXINE 25 MCG TAB PO (05:41)
[2018-05-03 06:00] LABS: ADD MAN DIFF? NO
[2018-05-03 06:05] LABS: BASOPHILS % 0.4 % (0.0-2.0); EOSINOPHILS # 0.6 10^3/ul (0.0-0.5); EOSINOPHILS % 5.5 % (0.0-7.0); HEMOGLOBIN 11.4 g/dl (14.0-18.0); LYMPHOCYTES # 2.3 10^3/ul (0.8-2.9); LYMPHOCYTES % 22.7 % (15.0-51.0); MEAN CORPUSCULAR HEMOGLOBIN 29.5 pg (29.0-33.0); MEAN CORPUSCULAR HGB CONC 32.6 g/dl (32.0-37.0); MEAN CORPUSCULAR VOLUME 90.4 fl (82.0-101.0); MEAN PLATELET VOLUME 11.1 fl (7.4-10.4); MONOCYTE # 0.9 10^3/ul (0.3-0.9); MONOCYTES % 8.5 % (0.0-11.0); NEUTROPHIL # 6.2 10^3/ul (1.6-7.5); NEUTROPHILS % 62.5 % (39.0-77.0); PLATELET COUNT 244 10^3/UL (140-415); RED BLOOD COUNT 3.87 10^6/ul (4.70-6.10); RED CELL DISTRIBUTION WIDTH 14.6 % (11.5-14.5)
[2018-05-03 06:31] LABS: MAGNESIUM 2.3 mg/dl (1.7-2.5)
[2018-05-03 06:45] LABS: ANION GAP 17 (5-13); BLOOD UREA NITROGEN 74 mg/dl (7-20); CALCIUM 8.2 mg/dl (8.4-10.2); CARBON DIOXIDE 24 mmol/L (21-31); CHLORIDE 98 mmol/L (97-110); CREATININE 10.52 mg/dl (0.61-1.24); Estimated GFR 5 mL/min (>60); GLUCOSE 140 mg/dl (70-220); POTASSIUM 4.4 mmol/L (3.5-5.1); SODIUM 139 mmol/L (135-144)
[2018-05-03] MEDS: SEVELAMER CARBONATE 800 MG TABLET PO ×3 (08:46→17:58)
[2018-05-03] MEDS: THIAMINE 100 MG TAB PO (11:47)
[2018-05-03] MEDS: APIXABAN 5 MG TABLET PO ×2 (11:47→20:40)
[2018-05-03] MEDS: CHOLECALCIFEROL 1,000 UNIT TAB PO (11:48)
[2018-05-03] MEDS: LISINOPRIL 20 MG TAB PO ×2 (11:48→20:41)
[2018-05-03] MEDS: CALCITRIOL 1 MCG INJ IV (13:20)
[2018-05-03] MEDS: ATORVASTATIN 20 MG TAB PO (20:40)
[2018-05-03] MEDS: CEFTRIAXONE 2 GM/50 ML (PMX) 50 ML IVPB (20:40)
[2018-05-03] MEDS: FAMOTIDINE 20 MG TAB PO (20:41)
[2018-05-04] MEDS: LEVOTHYROXINE 25 MCG TAB PO (05:32)
[2018-05-04] MEDS: SEVELAMER CARBONATE 800 MG TABLET PO ×3 (07:57→17:33)
[2018-05-04] MEDS: APIXABAN 5 MG TABLET PO (08:34)
[2018-05-04] MEDS: THIAMINE 100 MG TAB PO (08:34)
[2018-05-04] MEDS: CHOLECALCIFEROL 1,000 UNIT TAB PO (08:34)
[2018-05-04] MEDS: LISINOPRIL 20 MG TAB PO ×2 (08:35→20:06)
[2018-05-04] MEDS: ATORVASTATIN 20 MG TAB PO (20:05)
[2018-05-04] MEDS: FAMOTIDINE 20 MG TAB PO (20:06)
[2018-05-04] MEDS: CEFTRIAXONE 2 GM/50 ML (PMX) 50 ML IVPB (20:07)
[2018-05-05] MEDS: LEVOTHYROXINE 25 MCG TAB PO (05:18)
[2018-05-05] MEDS: THIAMINE 100 MG TAB PO (08:45)
[2018-05-05] MEDS: SEVELAMER CARBONATE 800 MG TABLET PO ×3 (08:45→17:12)
[2018-05-05] MEDS: CHOLECALCIFEROL 1,000 UNIT TAB PO (08:46)
[2018-05-05 09:46] LABS: HEPATITIS B SURFACE ANTIGEN NEGATIVE (NEGATIVE)
[2018-05-05] MEDS ORDERED: GLUCAGON 1 MG INJ IM (11:00)
[2018-05-05] MEDS ORDERED: GLUCOSE GEL 15 GRAM TUBE BUCCAL (11:00)
[2018-05-05] MEDS ORDERED: DEXTROSE 50% 50 ML SYRINGE IV ×2 (11:00)
[2018-05-05] MEDS ORDERED: GLUCOSE GEL 15 GRAM TUBE PO ×2 (11:00)
[2018-05-05] MEDS: INSULIN ASPART [NOVOLOG] 3 ML PEN SC ×3 (12:00→21:44)
[2018-05-05] MEDS: LISINOPRIL 20 MG TAB PO ×2 (14:52→20:37)
[2018-05-05] MEDS: ATORVASTATIN 20 MG TAB PO (20:36)
[2018-05-05] MEDS: FAMOTIDINE 20 MG TAB PO (20:37)
[2018-05-05] MEDS: CEFTRIAXONE 2 GM/50 ML (PMX) 50 ML IVPB (21:42)
[2018-05-06] MEDS: ACCU-CHEK XX (01:25)
[2018-05-06] MEDS: LEVOTHYROXINE 25 MCG TAB PO (05:22)
[2018-05-06 05:50] LABS: ADD MAN DIFF? NO
[2018-05-06 06:05] LABS: WHITE BLOOD COUNT 10.2 10^3/ul (4.8-10.8)
[2018-05-06 06:05] LABS: BASOPHIL # 0.1 10^3/ul (0.0-0.1); BASOPHILS % 0.6 % (0.0-2.0); EOSINOPHILS # 0.6 10^3/ul (0.0-0.5); EOSINOPHILS % 5.6 % (0.0-7.0); HEMATOCRIT 40.6 % (42.0-52.0); LYMPHOCYTES # 2.7 10^3/ul (0.8-2.9); LYMPHOCYTES % 26.6 % (15.0-51.0); MEAN CORPUSCULAR HEMOGLOBIN 29.7 pg (29.0-33.0); MEAN CORPUSCULAR VOLUME 92.9 fl (82.0-101.0); MEAN PLATELET VOLUME 11.1 fl (7.4-10.4); MONOCYTE # 0.8 10^3/ul (0.3-0.9); MONOCYTES % 7.9 % (0.0-11.0); PLATELET COUNT 297 10^3/UL (140-415); RED BLOOD COUNT 4.37 10^6/ul (4.70-6.10); RED CELL DISTRIBUTION WIDTH 14.6 % (11.5-14.5)
[2018-05-06 06:21] LABS: ALANINE AMINOTRANSFERASE 16 IU/L (13-69); ALBUMIN 4.4 g/dl (3.3-4.9); ALBUMIN/GLOBULIN RATIO 1.12; ALKALINE PHOSPHATASE 71 IU/L (42-121); ANION GAP 20 (5-13); ASPARTATE AMINO TRANSFERASE 23 IU/L (15-46); BLOOD UREA NITROGEN 48 mg/dl (7-20); CARBON DIOXIDE 27 mmol/L (21-31); CHLORIDE 95 mmol/L (97-110); CREATININE 8.01 mg/dl (0.61-1.24); Estimated GFR 7 mL/min (>60); GLUCOSE 153 mg/dl (70-220); POTASSIUM 4.5 mmol/L (3.5-5.1); SODIUM 142 mmol/L (135-144); TOTAL PROTEIN 8.3 g/dl (6.1-8.1)
[2018-05-06 06:29] LABS: HEMOGLOBIN A1C 6.5 % (0-5.9)
[2018-05-06] MEDS: INSULIN ASPART [NOVOLOG] 3 ML PEN SC ×4 (08:00→20:44)
[2018-05-06] MEDS: SEVELAMER CARBONATE 800 MG TABLET PO ×3 (08:16→16:59)
[2018-05-06] MEDS: THIAMINE 100 MG TAB PO (08:16)
[2018-05-06] MEDS: LISINOPRIL 20 MG TAB PO ×2 (08:17→20:34)
[2018-05-06] MEDS: CHOLECALCIFEROL 1,000 UNIT TAB PO (08:17)
[2018-05-06] MEDS: FAMOTIDINE 20 MG TAB PO (20:34)
[2018-05-06] MEDS: ATORVASTATIN 20 MG TAB PO (20:34)
[2018-05-06] MEDS: CEFTRIAXONE 2 GM/50 ML (PMX) 50 ML IVPB (21:20)
[2018-05-07] MEDS: ACCU-CHEK XX (02:00)
[2018-05-07] MEDS: LEVOTHYROXINE 25 MCG TAB PO (05:56)
[2018-05-07 06:06] LABS: ADD MAN DIFF? NO
[2018-05-07 06:10] LABS: BASOPHIL # 0.1 10^3/ul (0.0-0.1); BASOPHILS % 0.7 % (0.0-2.0); EOSINOPHILS # 0.7 10^3/ul (0.0-0.5); EOSINOPHILS % 5.8 % (0.0-7.0); HEMATOCRIT 37.5 % (42.0-52.0); HEMOGLOBIN 12.3 g/dl (14.0-18.0); LYMPHOCYTES % 26.5 % (15.0-51.0); MEAN CORPUSCULAR HEMOGLOBIN 29.5 pg (29.0-33.0); MEAN CORPUSCULAR HGB CONC 32.8 g/dl (32.0-37.0); MEAN CORPUSCULAR VOLUME 89.9 fl (82.0-101.0); MEAN PLATELET VOLUME 11.3 fl (7.4-10.4); MONOCYTE # 0.9 10^3/ul (0.3-0.9); MONOCYTES % 8.1 % (0.0-11.0); NEUTROPHIL # 6.6 10^3/ul (1.6-7.5); NEUTROPHILS % 58.6 % (39.0-77.0); PLATELET COUNT 288 10^3/UL (140-415); RED BLOOD COUNT 4.17 10^6/ul (4.70-6.10); RED CELL DISTRIBUTION WIDTH 14.8 % (11.5-14.5)
[2018-05-07 06:10] LABS: WHITE BLOOD COUNT 11.3 10^3/ul (4.8-10.8)
[2018-05-07 06:40] LABS: MAGNESIUM 2.3 mg/dl (1.7-2.5)
[2018-05-07 06:40] LABS: PHOSPHORUS 7.5 mg/dl (2.5-4.9)
[2018-05-07 06:42] LABS: INR 1.13; PROTIME 14.6 Sec (11.9-14.9); PT RATIO 1.1
[2018-05-07 06:43] LABS: PARTIAL THROMBOPLASTIN TIME 28.2 Sec (23.0-35.0)
[2018-05-07 06:45] LABS: ANION GAP 21 (5-13); BLOOD UREA NITROGEN 68 mg/dl (7-20); CALCIUM 8.5 mg/dl (8.4-10.2); CARBON DIOXIDE 26 mmol/L (21-31); CHLORIDE 93 mmol/L (97-110); Estimated GFR 5 mL/min (>60); GLUCOSE 147 mg/dl (70-220); POTASSIUM 4.7 mmol/L (3.5-5.1); SODIUM 140 mmol/L (135-144)
[2018-05-07] MEDS: INSULIN ASPART [NOVOLOG] 3 ML PEN SC ×4 (08:04→21:11)
[2018-05-07] MEDS: THIAMINE 100 MG TAB PO (08:15)
[2018-05-07] MEDS: SEVELAMER CARBONATE 800 MG TABLET PO ×3 (08:15→17:23)
[2018-05-07] MEDS: CHOLECALCIFEROL 1,000 UNIT TAB PO (08:15)
[2018-05-07] MEDS: LISINOPRIL 20 MG TAB PO ×2 (09:00→21:08)
[2018-05-07] MEDS: ATORVASTATIN 20 MG TAB PO (21:07)
[2018-05-07] MEDS: FAMOTIDINE 20 MG TAB PO (21:07)
[2018-05-07] MEDS: CEFTRIAXONE 2 GM/50 ML (PMX) 50 ML IVPB (21:13)
[2018-05-08] MEDS: ACCU-CHEK XX (02:00)
[2018-05-08 05:41] LABS: ADD MAN DIFF? NO
[2018-05-08 05:43] LABS: WHITE BLOOD COUNT 11.7 10^3/ul (4.8-10.8)
[2018-05-08 05:43] LABS: BASOPHIL # 0.1 10^3/ul (0.0-0.1); BASOPHILS % 0.9 % (0.0-2.0); EOSINOPHILS # 0.6 10^3/ul (0.0-0.5); EOSINOPHILS % 5.1 % (0.0-7.0); HEMATOCRIT 38.6 % (42.0-52.0); HEMOGLOBIN 12.4 g/dl (14.0-18.0); LYMPHOCYTES # 3.3 10^3/ul (0.8-2.9); LYMPHOCYTES % 28.4 % (15.0-51.0); MEAN CORPUSCULAR HEMOGLOBIN 29.2 pg (29.0-33.0); MEAN CORPUSCULAR HGB CONC 32.1 g/dl (32.0-37.0); MEAN CORPUSCULAR VOLUME 90.8 fl (82.0-101.0); MEAN PLATELET VOLUME 11.1 fl (7.4-10.4); MONOCYTES % 8.8 % (0.0-11.0); NEUTROPHIL # 6.6 10^3/ul (1.6-7.5); NEUTROPHILS % 56.5 % (39.0-77.0); PLATELET COUNT 289 10^3/UL (140-415); RED BLOOD COUNT 4.25 10^6/ul (4.70-6.10); RED CELL DISTRIBUTION WIDTH 14.8 % (11.5-14.5)
[2018-05-08] MEDS: LEVOTHYROXINE 25 MCG TAB PO (06:00)
[2018-05-08 06:04] LABS: INR 1.08; PROTIME 14.1 Sec (11.9-14.9); PT RATIO 1.1
[2018-05-08 06:05] LABS: PARTIAL THROMBOPLASTIN TIME 29.1 Sec (23.0-35.0)
[2018-05-08 06:14] LABS: ANION GAP 20 (5-13); BLOOD UREA NITROGEN 49 mg/dl (7-20); CALCIUM 8.5 mg/dl (8.4-10.2); CARBON DIOXIDE 25 mmol/L (21-31); CHLORIDE 95 mmol/L (97-110); CREATININE 7.85 mg/dl (0.61-1.24); Estimated GFR 7 mL/min (>60); GLUCOSE 142 mg/dl (70-220); POTASSIUM 4.5 mmol/L (3.5-5.1); SODIUM 140 mmol/L (135-144)
[2018-05-08] MEDS: INSULIN ASPART [NOVOLOG] 3 ML PEN SC ×4 (08:00→20:59)
[2018-05-08] MEDS: SEVELAMER CARBONATE 800 MG TABLET PO ×3 (08:00→18:23)
[2018-05-08] MEDS: LISINOPRIL 20 MG TAB PO ×2 (08:27→20:56)
[2018-05-08] MEDS: CHOLECALCIFEROL 1,000 UNIT TAB PO (08:27)
[2018-05-08] MEDS: THIAMINE 100 MG TAB PO (08:27)
[2018-05-08] MEDS: FENTAnyl 50 MCG/ML VIAL (16:05)
[2018-05-08] MEDS: LIDOCAINE 1% (MPF) 5 ML VIAL (16:05)
[2018-05-08] MEDS: hydrALAzine 20 MG INJ (17:19)
[2018-05-08] MEDS: ONDANSETRON 4 MG INJ (17:19)
[2018-05-08] MEDS: ATORVASTATIN 20 MG TAB PO (20:55)
[2018-05-08] MEDS: FAMOTIDINE 20 MG TAB PO (20:55)
[2018-05-08] MEDS: CEFTRIAXONE 2 GM/50 ML (PMX) 50 ML IVPB (20:56)
[2018-05-09] MEDS: ACCU-CHEK XX (02:00)
[2018-05-09] MEDS: LEVOTHYROXINE 25 MCG TAB PO (05:57)
[2018-05-09] MEDS: INSULIN ASPART [NOVOLOG] 3 ML PEN SC ×4 (08:00→20:14)
[2018-05-09] MEDS: SEVELAMER CARBONATE 800 MG TABLET PO ×3 (08:18→17:24)
[2018-05-09] MEDS: LISINOPRIL 20 MG TAB PO ×2 (08:18→20:07)
[2018-05-09] MEDS: CHOLECALCIFEROL 1,000 UNIT TAB PO (08:18)
[2018-05-09] MEDS: THIAMINE 100 MG TAB PO (08:18)
[2018-05-09] MEDS: ATORVASTATIN 20 MG TAB PO (20:06)
[2018-05-09] MEDS: FAMOTIDINE 20 MG TAB PO (20:07)
[2018-05-09] MEDS: CEFTRIAXONE 2 GM/50 ML (PMX) 50 ML IVPB (21:49)
[2018-05-10] MEDS: IOHEXOL 350MG/ML 50 ML BTL (01:28)
[2018-05-10] MEDS: SOD CHLORIDE 0.9% 100 ML (01:28)
[2018-05-10] MEDS: ACCU-CHEK XX (02:07)
[2018-05-10] MEDS: LEVOTHYROXINE 25 MCG TAB PO (05:49)
[2018-05-10] MEDS: INSULIN ASPART [NOVOLOG] 3 ML PEN SC ×3 (07:50→17:55)
[2018-05-10] MEDS: CHOLECALCIFEROL 1,000 UNIT TAB PO (08:56)
[2018-05-10] MEDS: THIAMINE 100 MG TAB PO (08:56)
[2018-05-10] MEDS: LISINOPRIL 20 MG TAB PO (08:57)
[2018-05-10] MEDS: SEVELAMER CARBONATE 800 MG TABLET PO ×3 (08:58→17:44)
== END 2018-05-10 18:45 | disposition home or self-care (01) | DRG 871 ==
LOC: MS1 05-09 22:44 → E/R 19:42 → 6WM 20:59
PROC: 5A09357 Assistance with Respiratory Ventilation, Less than 24 Consecutive Hours, Continuous Positive Airway Pressure (ICD-10-PCS; 2018-04-30)
PROC: 5A1D70Z Performance of Urinary Filtration, Intermittent, Less than 6 Hours Per Day (ICD-10-PCS; 2018-05-01)
PROC: 5A1D70Z Performance of Urinary Filtration, Intermittent, Less than 6 Hours Per Day (ICD-10-PCS; 2018-05-02)
PROC: 5A1D70Z Performance of Urinary Filtration, Intermittent, Less than 6 Hours Per Day (ICD-10-PCS; 2018-05-04)
PROC: 5A1D70Z Performance of Urinary Filtration, Intermittent, Less than 6 Hours Per Day (ICD-10-PCS; 2018-05-06)
PROC: 0BBJ3ZX Excision of Left Lower Lung Lobe, Percutaneous Approach, Diagnostic (ICD-10-PCS; principal; 2018-05-08)
PROC: 5A1D70Z Performance of Urinary Filtration, Intermittent, Less than 6 Hours Per Day (ICD-10-PCS; 2018-05-08)
PROC: 5A1D70Z Performance of Urinary Filtration, Intermittent, Less than 6 Hours Per Day (ICD-10-PCS; 2018-05-10)
DX: A41.9 Sepsis, unspecified organism (principal); J18.9 Pneumonia, unspecified organism; J96.01 Acute respiratory failure with hypoxia; I21.A1 Myocardial infarction type 2; N18.6 End stage renal disease; I50.33 Acute on chronic diastolic (congestive) heart failure; I13.2 Hypertensive heart and chronic kidney disease with heart failure and with stage 5 chronic kidney disease, or end stage renal disease; C34.32 Malignant neoplasm of lower lobe, left bronchus or lung; E11.22 Type 2 diabetes mellitus with diabetic chronic kidney disease; I48.0 Paroxysmal atrial fibrillation; E87.5 Hyperkalemia; R65.20 Severe sepsis without septic shock; E78.5 Hyperlipidemia, unspecified; D63.1 Anemia in chronic kidney disease; I25.10 Atherosclerotic heart disease of native coronary artery without angina pectoris; E87.6 Hypokalemia; Z99.2 Dependence on renal dialysis; Z79.4 Long term (current) use of insulin; Z87.891 Personal history of nicotine dependence; Z79.01 Long term (current) use of anticoagulants
CPT/HCPCS: 36415; 36600; 71045; 71275; 77012; 80048; 80053; 82550; 82553; 82803; 82962; 83036; 83605; 83735; 83880; 84100; 84484; 85025; 85378; 85610; 85730; 87340; 88307; 88313; 88341; 88342; 90935; 93005; 93306; 94660; 96374; 99291-25

== ENCOUNTER 2018-10-12 08:44 | Emergency (ER) | payer OTHER ==
[2018-10-12 09:32] LABS: ADD MAN DIFF? NO
[2018-10-12 09:36] LABS: BASOPHIL # 0.1 10^3/ul (0.0-0.1); BASOPHILS % 0.5 % (0.0-2.0); EOSINOPHILS # 0.1 10^3/ul (0.0-0.5); EOSINOPHILS % 1.1 % (0.0-7.0); HEMATOCRIT 34.8 % (42.0-52.0); HEMOGLOBIN 11.5 g/dl (14.0-18.0); LYMPHOCYTES # 2.1 10^3/ul (0.8-2.9); LYMPHOCYTES % 20.2 % (15.0-51.0); MEAN CORPUSCULAR HEMOGLOBIN 29.5 pg (29.0-33.0); MEAN CORPUSCULAR VOLUME 89.2 fl (82.0-101.0); MEAN PLATELET VOLUME 11.6 fl (7.4-10.4); MONOCYTE # 1.2 10^3/ul (0.3-0.9); MONOCYTES % 11.3 % (0.0-11.0); NEUTROPHIL # 6.9 10^3/ul (1.6-7.5); NEUTROPHILS % 66.3 % (39.0-77.0); PLATELET COUNT 262 10^3/UL (140-415); RED CELL DISTRIBUTION WIDTH 14.6 % (11.5-14.5)
[2018-10-12 09:36] LABS: WHITE BLOOD COUNT 10.4 10^3/ul (4.8-10.8)
[2018-10-12 09:53] LABS: INR 1.26; PROTIME 15.9 Sec (11.9-14.9); PT RATIO 1.2
[2018-10-12 09:54] LABS: PARTIAL THROMBOPLASTIN TIME 28.5 Sec (23.0-35.0)
[2018-10-12 09:56] LABS: ALANINE AMINOTRANSFERASE 8 IU/L (13-69); ALBUMIN/GLOBULIN RATIO 1.08; ALKALINE PHOSPHATASE 186 IU/L (42-121); ANION GAP 23 (5-13); ASPARTATE AMINO TRANSFERASE 14 IU/L (15-46); BILIRUBIN,INDIRECT 0.5 mg/dl (0-1.1); BILIRUBIN,TOTAL 0.5 mg/dl (0.2-1.3); CALCIUM 8.4 mg/dl (8.4-10.2); CARBON DIOXIDE 19 mmol/L (21-31); CHLORIDE 94 mmol/L (97-110); GLUCOSE 219 mg/dl (70-220); LIPASE 122 U/L (23-300); POTASSIUM 4.6 mmol/L (3.5-5.1); SODIUM 136 mmol/L (135-144); TOTAL PROTEIN 7.7 g/dl (6.1-8.1)
[2018-10-12 10:02] LABS: CREATININE 15.29 mg/dl (0.61-1.24); Estimated GFR 3 mL/min (>60)
[2018-10-12 10:05] LABS: BLOOD UREA NITROGEN 128 mg/dl (7-20)
[2018-10-12 10:08] LABS: TROPONIN-I 0.017 ng/ml (0.000-0.120)
[2018-10-12] MEDS: MAGNESIUM CITRATE 300 ML BTL PO (10:43)
== END 2018-10-12 11:47 | disposition home or self-care (01) ==
LOC: E/R 08:44
DX: K59.00 Constipation, unspecified (principal); I12.0 Hypertensive chronic kidney disease with stage 5 chronic kidney disease or end stage renal disease; N18.6 End stage renal disease; Z99.2 Dependence on renal dialysis; Z79.84 Long term (current) use of oral hypoglycemic drugs; Z79.01 Long term (current) use of anticoagulants
CPT/HCPCS: 36415; 74176; 80053; 83690; 84484; 85025; 85610; 85730; 93005; 99285-25